=== PATIENT | female | born 1985 | race Caucasian/White ===

== ENCOUNTER 2024-05-12 14:26 | Outpatient (OUT) | payer SELFPAY ==
--- NOTE | 2024-05-12 17:43 | PC.NURSE ---
Charlene and 23 day old Anuj arrive for support. Mother vices concerns and frustration over journey and is looking for guidance to continue efforts to breastfed. Complete history obtained, of note H/O PCOS, insulin resistance and infertility. States did have breast changes with . Mom comments that milk took nearly 2 weeks to come in . Poor latching and infrequent pumping also noted. Pt wants to directly breastfeed if possible because pumping is tremendous work weight today is 9-6 oz. Large wet and yellow stool noted. Infant to breast in usual fashion for mom. LC notes poor positioning, shallow latching and infant frustrated with process. LC guides mom to better positioning, better hand placement, breast support and baby up to the breast . Infant calms and roots at nipple. Able to latch deeply on 2nd attempt. Mother voices surprise at infant behavior. Reviewed why latch and positioning is important for successful feeding and milk supply. Mom states I don't think he has ever latched like this, even in the beginning . Discussed supporting supply with pumping as baby relearns to feed at the breast. Given information on exclusive pumping schedule. Plan to bring infant to breast each feed with good positioning and deep latch, feed on both breasts as good practice and to pump if baby does not latch or if only feeds from 1 breast. Grandmother very supportive and offers good support. Baby nurses well 20 min on left breast, not interested in right breast. Upon assessment of infant no tongue or lip tie noted, baby does posture head to the right shoulder often, and has slight banana curve to the right when laying on back. Discussed use of body work with chiropractor for releasing tight muscles and assisting infant to be able to maintain midline head position. Mom open to information, will talk to and decide. Infant and family home to practice new skills, will return 05/17/2024 for continued support.
== END 2024-05-12 18:00 | disposition home or self-care (01) ==
PROVIDERS: PCP Family Medicine; Visit Provider Pediatrics
DX: Z39.1 Encounter for care and examination of lactating mother (principal)

== ENCOUNTER 2024-05-17 08:42 | Outpatient (OUT) | payer SELFPAY | END 2024-05-17 15:55 | disposition home or self-care (01) | PROVIDERS: PCP Family Medicine; Visit Provider Obstetrics & Gynecology | DX: Z39.1 Encounter for care and examination of lactating mother (principal) ==

== ENCOUNTER 2024-05-24 08:13 | Outpatient (OUT) | payer SELFPAY ==
--- NOTE | 2024-05-24 16:03 | PC.NURSE ---
Charlene and 5+ week old Anuj arrive for support. Her mother attends as well. Charlene decided to simply feed the baby After last visit, she decided to stop pumping and worrying over how much milk he was getting ; just put him to the breast when baby signaled and found baby to much happier, herself less stressed and now enjoying being a mom. States 2-4 times a day for stash and allows baby to feed every 1-3 hours during the day as well as sleep 4 hours at night. Charlene appears more relaxed, laughing and confident. She places baby to the breast independently, without prompting. Discussed ways to become more comfortable with feeding in public places, like [facility]. Discussed easy wardrobe options that allow for easy access and keeping mom covered as much as possible. Choose the seat in the back of [employer] to limit number of people that could watch her feed the baby Charlene states is a very private person, but she struggles with using a blanket or drape for nursing. Encouraged to attend [facility] group for further support. Grandma experienced mom of 6 and nursing as well. Very supportive of Charlene without being over bearing. Declined weight for Anuj as he was weighed yesterday at PEDS office. No further concerns voiced, leaves ambulatory for home aware to call for questions or concerns.
== END 2024-05-24 16:13 | disposition home or self-care (01) ==
LOC: FBCO 08:14
PROVIDERS: PCP Family Medicine; Visit Provider Obstetrics & Gynecology
DX: Z39.1 Encounter for care and examination of lactating mother (principal)

== ENCOUNTER 2024-06-19 11:28 | Outpatient (OUT) | payer SELFPAY ==
--- OUTSIDE RECORDS SUMMARY | 2024-06-19 11:47 | XMS_ITS | CCD ---
Author Organization [facility] Care Team Providers Care Supervisor [employer] Name Role Phone MADDIE LOZOYA Admitting Unavailable MADDIE LOZOYA Attending Unavailable MADDIE LOZOYA Consulting Unavailable Maddie Lozoya MD Primary Care Provider [phone] Maddie Lozoya MD Primary Care Provider [phone] KATELYNN WOODALL Attending Unavailable POOL, KATELYNN E Admitting Unavailable HOY, MADDIE M Primary Care Unavailable POOL, KATELYNN E Referring Unavailable HOY, MADDIE M Primary Care Unavailable POOL, KATELYNN E Referring Unavailable HOY, MADDIE M Primary Care Unavailable POOL, KATELYNN E Referring Unavailable HOY, MADDIE M Primary Care Unavailable POOL, KATELYNN E Referring Unavailable HOY, MADDIE M Primary Care Unavailable POOL, KATELYNN E Referring Unavailable HOY, MADDIE M Primary Care Unavailable POOL, KATELYNN E Admitting Unavailable HOY, MADDIE M Primary Care Unavailable POOL, KATELYNN E Attending Unavailable Medications Current Medications Medication Drug Class(es) Dates Sig (Normalized) Sig (Original) acetaminophen 500 mg oral tablet (1 source) Start: 04-19-2024 benzocaine 200 mg/ml / menthol 5 mg/ml topical spray (1 source) Standardized Chemical Allergen Start: 04-18-2024 Topical, PRN, Pain, Starting on Wed04/18/24 at 1853, Apply to perineal area. Patient is capable and may self administer at bedside. 1 ml carboprost 0.25 mg/ml injection (1 source) Prostaglandin Analog Start: 04-19-2024 clomiPHENE citrate 50 mg oral tablet (1 source) Estrogen Agonist/Antagonist Start: 09-07-2022 take 1 tablet by mouth once daily, then take 3 tablets by mouth once daily clomiPHENE (CLOMID) 50 MG tablet Take 1 tablet by mouth daily Take 3 tablets daily on cycle days 5-9. 15 tablet 0 09/07/2022 Active lanolin 1000 mg/ml topical cream (1 source) Start: 04-19-2024 miSOPROStol 0.1 mg oral tablet (1 source) Prostaglandin E1 Analog Start: 04-19-2024 ondansetron (ZOFRAN-ODT) disintegrating tablet 4 mg (1 source) Start: 04-19-2024 ondansetron (ZOFRAN-ODT) disintegrating tablet 4 mg Vit-Fe Fumarate-FA ( VITAMINS) 28-0.8 MG TABS (3 sources) Start: 09-09-2023 take 1 tablet by mouth once daily Vit-Fe Fumarate-FA ( VITAMINS) 28-0.8 MG TABS Take 1 tablet by mouth daily 90 tablet 3 09/09/2023 Suspended Start: 09-09-2023 take 1 tablet by iris th once daily Vit-Fe Fumarate-FA ( VITAMINS) 28-0.8 MG TABS Take 1 tablet by mouth daily 90 tablet 3 09/09/2023 Active 5 ml sodium chloride 9 mg/ml injection (2 sources) Start: 04-19-2024 Start: 04-18-2024 End: 04-19-2024 5-40 mL, IntraVENous, EVERY 12 HOURS SCHEDULED (2 times per day), First dose on Wed04/18/24 at 2100, Until Discontinued, For Line Patency: Peripheral IV = 5 mL; Midline or Central Line = 10 mL/lumen. If following IV push medication, administer flush at same rate as the IV push. Flush volume is determined by type of infusion therapy being given. For non-viscous solutions use: Peripheral IV = 5 mL Midline or Central Line = 10 mL/lumen For viscous solutions (i.e. blood components, parenteral nutrition, contrast media, or after obtaining blood sample) use: Peripheral IV = 10 mL Midline or Central Line = 20 mL/lumen, Labor and Delivery witch elif 500 mg/ml medicated pad (1 source) Start: 04-18-2024 Topical, PRN, Hemorrhoids, For perineal pain or discomfort, Starting on Wed04/18/24 at 1853, Apply to perineal area. Patient is capable and may self administer at bedside. Completed/Discontinued Medications Medication Drug Class(es) Dates Sig (Normalized) Sig (Original) calcium chloride 0.0014 meq/ml / potassium chloride 0.004 meq/ml / sodium chloride 0.103 meq/ml / sodium lactate 0.028 meq/ml injectable solution (1 source) Start: 04-18-2024 End: 04-19-2024 IntraVENous, at 125 mL/hr, CONTINUOUS, Starting on Wed04/18/24 at 1915, Labor and Delivery docusate sodium 100 mg oral capsule (1 source) Start: 04-19-2024 take 100 mg by mouth twice daily as needed 100 mg, Oral, 2 TIMES DAILY PRN, Starting on Wed04/19/24 at 1340, Until Discontinued, Constipation, Do not crush or break., ibuprofen 800 mg oral tablet (1 source) Nonsteroidal Anti-inflammatory Drug Start: 04-19-2024 800 mg, Oral, EVERY 8 HOURS SCHEDULED (3 times per day), First dose on Wed04/19/24 at 1400, Until Discontinued, Once tolerating PO, discontinue Ketorolac and begin ibuprofen 8 hours after the final dose of Ketotolac. Alternate ibuprofen and acetaminophen every 4 hours., labetalol hydrochloride 100 mg oral tablet (1 source) beta-Adrenergic Manohar Start: 04-18-2024 End: 04-18-2024 take 1 dose by mouth once 200 mg, Oral, ONCE, 1 dose, On Wed04/18/24 at 2315 lidocaine hydrochloride 20 mg/ml mucous membrane topical solution (2 sources) Antiarrhythmic, Amide Local Anesthetic Start: 04-19-2024 End: 04-19-2024 30 mL, Vaginal, ONCE, 1 dose, On Wed04/19/24 at 0045 Start: 04-18-2024 End: 04-19-2024 30 mL, Other, PRN, 1 dose, S tarting on Wed04/18/24 at 1853, Until Wed04/19/24 at 1128, Pain, for perineal laceration/episiotomy repair, Post Delivery oxytocin (PITOCIN) 30 units in 500 mL infusion (1 source) Start: 04-18-2024 End: 04-19-2024 1-24 víctor-units/min (1-24 m L/hr), IntraVENous, CONTINUOUS, Starting on Wed04/18/24 at 1915, Until Wed04/19/24 at 1340, Begin infusion at 1 víctor-unit/min (1 víctor-unit per min = 1 mL per hour) . Then increase by 2 víctor-units/min as needed, no faster than every 30 minutes, until labor is achieved. Labor is defined as contractions every 2-3 minutes with cervical changes or Condon units (MVU) greater than 200 in a 10-minute window. Maximum infusion rate: 24 víctor-unit/min. Contact provider if maximum rate does not achieve desired response. Provider may order alternative titration goal or other clinically appropriate goal of titration rate (s). Smaller titration increments of 1 víctor-units/min, not faster than every 30 minutes, may be used when approaching therapeutic goal after discussion with provider. If unable to increase call provider and let them know. At time of needed increase, Labor and Delivery Problems Active Problems Problem Classification Problem Date Documented Da te Episodic/Chronic Female infertility (3 sources) Female infertility; Translations: [Female infertility, unspecified] Chronic Hypertension complicating ; childbirth and the puerperium (5 sources) -induced hypertension; Translations: [Gestational [-induced] hypertension without significant proteinuria, unspecified trimester] Onset: 04-03-2024 04-03-2024 Episodic Menstrual disorders (2 sources) Amenorrhea; Translations: [Amenorrhea, unspecified] Onset: 09-09-2023 Chronic Other complications of (1 source) Obesity complicating , first trimester; Translations: [Obesity complicating , first trimester] Onset: 09-09-2023 Chronic Other endocrine disorders (3 sources) Polycystic ovary syndrome; Translations: [Polycystic ovarian syndrome] Onset: 12-29-2023 12-29-2023 Chronic Other and delivery including normal (7 sources) Encounter for supervision of normal , unspecified, third trimester; Translations: [Encounter for supervision of normal first , first trimester] Onset: 09-09-2023 Episodic Polyhydramnios and other problems of amniotic cavity (2 sources) Amniotic fluid leaking; Translations: [Premature rupture of membranes, unspecified as to length of time between rupture and onset of labor, unspecified weeks of gestation] Onset: 04-19-2024 04-19-2024 Episodic Prolonged (2 sources) Post-term of 40 to 42 weeks; Translations: [Post-term ] Onset: 04-19-2024 04-19-2024 Episodic Residual codes; unclassified (1 source) Gestation period, 36 weeks; Translations: [36 weeks gestation of ] 03-20-2024 Episodic Residual codes; unclassified (1 source) 36 weeks gestation of ; Translations: [36 weeks gestation of ] Onset: 03-20-2024 Episodic Past or Other Problems Problem Classification Problem Date Documented Date Episodic/Chronic Immunizations and screening for infectious disease (1 source) Encounter for screening for human papillomavirus (HPV); Translations: [Encounter for screening for human papillomavirus (HPV)] Onset: 06-14-2023 Episodic Other complications of (1 source) Spotting complicating , unspecified trimester; Translations: [Spotting complicating , unspecified trimester] Onset: 09-06-2023 Episodic Other female genital disorders (3 sources) H/O: infertility - female; Translations: [Personal history of other diseases of the female genital tract] Onset: 12-29-2023 12-29-2023 Episodic Residual codes; unclassified (1 source) 8 weeks gestation of ; Translations: [8 weeks gestation of ] Onset: 09-09-2023 Episodic Results Test Name Value Interpretation Reference Range Facility APTTon 04-18-2024 aPTT Coag (Bld) [Time] 24.0 s Low [facility] Comment on above: IV Heparin Therapy Range: 62.0-94.0 Interpretation and review of laboratory results Abnormal [facility] aPTT Coag (Bld) [Time] 24.0 s Low 26.8-34.8 [facility] Comment on above: Result Comment: IV Heparin Therapy Range: 62.0-94.0 Performed By: #### P TT, URI, LD, PT, CP #### [facility] [address] [place] [address] Name Plate Stamping Machine Operator: Rashaun Bonner MD CBC auto differentialon 04-09 Basophils (Bld) [#/Vol] 0.04 10*3/uL [facility] Basophils/100 WBC (Bld) 0 % 0 - 2 % [facility] Eosinophils (Bld) [#/Vol] 0.10 10*3/uL [facility] Eosinophils/100 WBC (Bld) 1 % 1 - 4 % [facility] Erythrocyte distribution width (RBC) [Ratio] 14.2 % 11.8 - 14.4 % [facility] Hematocrit (Bld) [Volume fraction] 44.2 % 36.3 - 47.1 % [facility] Hemoglobin (Bld) [Mass/Vol] 15.3 g/dL High 11.9 - 15.1 g/dL [facility] Immature granulocytes (Bld) [#/Vol] 0.05 10*3/uL [facility] Immature granulocytes/100 WBC (Bld) 0 % 0 [facility] Interpretation and review of laboratory results Abnormal [facility] Lymphocytes/100 WBC (Bld) 15 % Low 24 - 43 % [facility] Lymphocytes/100 WBC (Bld) 2.02 % [facility] MCH (RBC) [Entitic mass] 31.4 pg 25.2 - 33.5 pg [facility] MCHC (RBC) [Mass/Vol] 34.6 g/dL 28.4 - 34.8 g/dL [facility] MCV (RBC) [Entitic vol] 90.6 fL 82.6 - 102.9 fL [facility] Monocytes/100 WBC (Bld) 7 % 3 - 12 % [facility] Monocytes/100 WBC (Bld) 0.96 % [facility] Neutrophils/100 WBC (Bld) 77 % High 36 - 65 % [facility] Nucleated RBC/100 WBC (Bld) [Ratio] 0.0 % 0.0 per 100 WBC [facility] Platelet mean volume (Bld) [Entitic vol] 9.7 fL 8.1 - 13.5 fL [facility] Platelets (Bld) [#/Vol] 223 10*3/uL [facility] RBC (Bld) [#/Vol] 4.88 10*6/uL 3.95 - 5.1 1 m/uL [facility] Segmented neutrophils/100 WBC (Bld) 10.09 % High [facility] WBC other (Bld) [#/Vol] 13.3 High [facility] CBC with Diffon 04-18-2024 Abs. Basophil 0.04 k/uL Normal 0.00-0.20 [facility] Comment on above: Performed By: #### C DP #### [facility] [address] [place] [address] Name Plate Stamping Machine Operator: Rashaun Bonner MD Abs.Imm.Granulocyte 0.05 k/uL Normal 0.00-0.30 [facility] Comment on above: Performed By: #### C DP #### [facility] [address] [place], [place] [address] Name Plate Stamping Machine Operator: Rashaun Bonner MD Abs.Neutrophil (Seg) 10.09 k/uL High 1.50-8.10 [facility] Comment on above: Performed By: #### C DP #### [facility] [address] [place], [place] [address] Name Plate Stamping Machine Operator: Rashaun Bonner MD Basophils/100 WBC (Bld) 0 % Normal 0-2 [facility] Comment on above: Performed By: #### C DP #### [facility] [address] [place] [address] [place], [place] [address] Name Plate Stamping Machine Operator: Rashaun Bonner MD Eosinophils (Bld) [#/Vol] 0.10 10*3/uL Normal 0.00-0.44 [facility] Comment on above: Performed By: #### C DP #### [facility] [address] [place], [id number] Name Plate Stamping Machine Operator: Rashaun Bonner MD Eosinophils/100 WBC (Bld) 1 % Normal 1-4 [facility] Comment on above: Performed By: #### C DP #### [facility] [address] [place] [address] [place] [address] Name Plate Stamping Machine Operator: Rashaun Bonner MD Erythrocyte distribution width (RBC) [Ratio] 14.2 % Normal 11.8-14.4 [facility] Comment on above: Performed By: #### C DP #### [facility] [address] [place], [place] [id number] Name Plate Stamping Machine Operator: Rashaun Bonner MD Hematocrit (Bld) [Volume fraction] 44.2 % Normal 36.3-47.1 [facility] Comment on above: Performed By: #### C DP #### [facility] [address] [place], [place] [id number] Name Plate Stamping Machine Operator: Rashaun Bonner MD Hemoglobin (Bld) [Mass/Vol] 15.3 g/dL High 11.9-15.1 [facility] Comment on above: Performed By: #### C DP #### [address] [place] [address] Name Plate Stamping Machine Operator: Rashaun Bonner MD Immature granulocytes/100 WBC (Bld) 0 % Normal 0 [facility] Comment on above: Performed By: #### C DP #### [facility] [address] [place] [address] [place], [place] [id number] Name Plate Stamping Machine Operator: Rashaun Bonner MD Lymphocytes (Bld) [#/Vol] 2.02 10*3/uL Normal 1.10-3.70 [facility] Comment on above: Performed By: #### C DP #### [facility] [address] [place] [address] [place], [id number] Name Plate Stamping Machine Operator: Rashaun Bonner MD Lymphocytes/100 WBC (Bld) 15 % Low 24-43 [facility] Comment on above: Performed By: #### C DP #### [facility] [address] [place] [address] [place] [address] Name Plate Stamping Machine Operator: Rashaun Bonner MD MCH (RBC) [Entitic mass] 31.4 pg Normal 25.2-33.5 [facility] Comment on above: Performed By: #### C DP #### [facility] [address] [place] [address] [place], [place] [id number] Name Plate Stamping Machine Operator: Rashaun Bonner MD MCHC (RBC) [Mass/Vol] 34.6 g/dL Normal 28.4-34.8 [facility] Comment on above: Performed By: #### C DP #### [facility] [address] [place], [place] [id number] Name Plate Stamping Machine Operator: Rashaun Bonner MD MCV (RBC) [Entitic vol] 90.6 fL Normal 82.6-102.9 [facility] Comment on above: Performed By: #### C DP #### [facility] [address] [place], [place] [id number] Name Plate Stamping Machine Operator: Rashaun Bonner MD Monocytes (Bld) [#/Vol] 0.96 10*3/uL Normal 0.10-1.20 [facility] Comment on above: Performed By: #### C DP #### [facility] [address] [place], [place] [id number] Name Plate Stamping Machine Operator: Rashaun Bonner MD Monocytes/100 WBC (Bld) 7 % Normal 3-12 [facility] Comment on above: Performed By: #### C DP #### [facility] [address] [place], [place] [id number] Name Plate Stamping Machine Operator: Rashaun Bonner MD Neutrophil (Seg) 77 % High 36-65 [facility] Comment on above: Performed By: #### C DP #### [facility] [address] [place], [place] [id number] Name Plate Stamping Machine Operator: Rashaun Bonner MD NRBC Automated 0.0 per 100 WBC Normal 0.0 [facility] Comment on above: Performed By: #### C DP #### [facility] [address] [place], [place] [id number] Name Plate Stamping Machine Operator: Rashaun Bonner MD Platelet mean volume (Bld) [Entitic vol] 9.7 fL Normal 8.1-13.5 [facility] Comment on above: Performed By: #### C DP #### [facility] [address] [place], [place] [address] Name Plate Stamping Machine Operator: Rashaun Bonner MD Platelets (Bld) [#/Vol] 223 10*3/uL Normal 138-453 [facility] Comment on above: Performed By: #### C DP #### [facility] [address] [place], [place] [id number] Name Plate Stamping Machine Operator: Rashaun Bonner MD RBC (Bld) [#/Vol] 4.88 10*6/uL Normal 3.95-5.11 [facility] Comment on above: Performed By: #### C DP #### [facility] [address] [place], [place] [id number] Name Plate Stamping Machine Operator: Rashaun Bonner MD WBC (Bld) [#/Vol] 13.3 10*3/uL High 3.5-11.3 [facility] Comment on above: Performed By: #### C DP #### [facility] [address] [place], [place] [id number] Name Plate Stamping Machine Operator: Rashaun Bonner MD Comp Metabolic Profon 2023 Albumin [Mass/Vol] 3.6 g/dL Normal 3.5-5.2 [facility] Comment on above: Performed By: #### P TT, URI, LD, PT, CP #### [facility] [address] [place], [place] [id number] Name Plate Stamping Machine Operator: Rashaun Bonner MD Albumin/Glob Ratio 1.1 Normal 1.0-2.5 [facility] Comment on above: Performed By: #### P TT, URI, LD, PT, CP #### [facility] [address] [place] [address] Name Plate Stamping Machine Operator: Rashaun Bonner MD Alkaline Phos 195 U/L High 35-104 [facility] Comment on above: Performed By: #### P TT, URI, LD, PT, CP #### [facility] [address] [place] [address] Name Plate Stamping Machine Operator: Rashaun Bonner MD ALT [Catalytic activity/Vol] 9 U/L Low - [facility] Comment on above: Performed By: #### P TT, URI, LD, PT, CP #### [facility] [address] [place] [address] [place], [place] [id number] Name Plate Stamping Machine Operator: Rashaun Bonner MD Anion gap [Moles/Vol] 12 mmol/L Normal 9-16 [facility] Comment on above: Performed By: #### P TT, URI, LD, PT, CP #### [address] [place], [place] 6802183 Name Plate Stamping Machine Operator: Rashaun Bonner MD AST [Catalytic activity/Vol] 17 U/L Normal [facility] Comment on above: Performed By: #### P TT, URI, LD, PT, CP #### [address] [place] [address] Name Plate Stamping Machine Operator: Rashaun Bonner MD Bilirubin [Mass/Vol] 0.3 mg/dL Normal 0.00-1.20 [facility] Comment on above: Performed By: #### P TT, URI, LD, PT, CP #### [address] [place], [place] [phone] Name Plate Stamping Machine Operator: Rashaun Bonner MD BUN/CRE Ratio 14 Normal 9-20 [facility] Comment on above: Performed By: #### P TT, URI, LD, PT, CP #### [address] [place] [address] Name Plate Stamping Machine Operator: Rashaun Bonner MD Calcium [Mass/Vol] 9.8 mg/dL Normal 8.6-10.4 [facility] Comment on above: Performed By: #### P TT, URI, LD, PT, CP #### [facility] [address] [place], [place] [phone] Name Plate Stamping Machine Operator: Rashaun Bonner MD Chloride [Moles/Vol] 105 mmol/L Normal 98-107 [facility] Comment on above: Performed By: #### P TT, URI, LD, PT, CP #### [facility] [address] [place] [id number] Name Plate Stamping Machine Operator: Rashaun Bonner MD CO2 [Moles/Vol] 20 mmol/L Normal 20-31 [facility] Comment on above: Performed By: #### P TT, URI, LD, PT, CP #### [facility] [address] [place] [address] Name Plate Stamping Machine Operator: Rashaun Bonner MD Creatinine [Mass/Vol] 0.7 mg/dL Normal 0.50-0.90 [facility] Comment on above: Performed By: #### P TT, URI, LD, PT, CP #### [facility] [address] [place] [address] Name Plate Stamping Machine Operator: Rashaun Bonner MD GFR/1.73 sq M.predicted among non-blacks MDRD (S/P/Bld) [Vol rate/Area] mL/min/{1.73_m2} Normal >60 [facility] Comment on above: Result Comment: These results are not intended for use in patients <18 years of age. eGFR results are calculated without a race factor using the 2020 CKD-EPI equation. Careful clinical correlation is recommended, particularly when comparing to results calculated using previous equations. The CKD-EPI equation is less accurate in patients with extremes of muscle mass, extra-renal metabolism of creatine, excessive creatine ingestion, or following therapy that affects renal tubular secretion. Performed By: #### P TT, URI, LD, PT, CP #### [facility] [address] [place], [place] [phone] Name Plate Stamping Machine Operator: Rashaun Bonner MD Glucose [Mass/Vol] 75 mg/dL Normal 74-99 [facility] Comment on above: Performed By: #### P TT, URI, LD, PT, CP #### [facility] [address] [place], [place] [id number] Name Plate Stamping Machine Operator: Rashaun Bonner MD Potassium [Moles/Vol] 3.9 mmol/L Normal 3.7-5.3 [facility] Comment on above: Performed By: #### P TT, URI, LD, PT, CP #### [facility] [address] [place], [place] [phone] Name Plate Stamping Machine Operator: Rashaun Bonner MD Protein [Mass/Vol] 6.8 g/dL Normal 6.6-8.7 [facility] Comment on above: Performed By: #### P TT, URI, LD, PT, CP #### [address] [place] [address] Name Plate Stamping Machine Operator: Rashaun Bonner MD Sodium [Moles/Vol] 137 mmol/L Normal 136-145 [facility] Comment on above: Performed By: #### P TT, URI, LD, PT, CP #### [address] [place] [address] Name Plate Stamping Machine Operator: Rashaun Bonner MD Urea nitrogen [Mass/Vol] 10 mg/dL Normal 6-20 [facility] Comment on above: Performed By: #### P TT, URI, LD, PT, CP #### [facility] [address] [place] [address] Name Plate Stamping Machine Operator: Rashaun Bonner MD Comprehensive Metabolic Pane [facility] 04-18-2024 Albumin [Mass/Vol] 3.6 g/dL 3.5 - 5.2 g/dL [facility] Albumin/Globulin [Mass ratio] 1.1 {ratio} 1.0 - 2.5 [facility] ALP [Catalytic activity/Vol] 195 U/L High 35 - 104 U/L [facility] ALT [Catalytic activity/Vol] 9 U/L Low 10 - 35 U/L [facility] Anion gap [Moles/Vol] 12 mmol/L 9 - 16 mmol/L [facility] AST [Catalytic activity/Vol] 17 U/L 10 - 35 U/L [facility] Bilirubin [Mass/Vol] 0.3 mg/dL 0.00 - 1.20 mg/dL [facility] Calcium [Mass/Vol] 9.8 mg/dL 8.6 - 10. 4 mg/dL [facility] Chloride [Moles/Vol] 105 mmol/L 98 - 10 7 mmol/L [facility] CO2 [Moles/Vol] 20 mmol/L 20 - 31 mmol/L [facility] Creatinine [Mass/Vol] 0.7 mg/dL 0.50 - 0.90 mg/dL [facility] EstAbdirashid Rate - PINF [facility] Comment on above: These results are not intended for use in patients <18 years of age. eGFR results are calculated without a race factor using the 2020 CKD-EPI equation. Careful clinical correlation is recommended, particularly when comparing to results calculated using previous equations. The CKD-EPI equation is less accurate in patients with extremes of muscle mass, extra-renal metabolism of creatine, excessive creatine ingestion, or following therapy that affects renal tubular secretion. Glucose [Mass/Vol] 75 mg/dL 74 - 99 mg/dL [facility] Interpretation and review of laboratory results Abnormal [facility] Potassium [Moles/Vol] 3.9 mmol/L 3.7 - 5.3 mmol/L [facility] Protein [Mass/Vol] 6.8 g/dL 6.6 - 8.7 g/dL [facility] Sodium [Moles/Vol] 137 mmol/L 136 - 145 mmol/L [facility] Urea nitrogen [Mass/Vol] 10 mg/dL 6 - 20 mg/dL [facility] Urea nitrogen/Creatinine [Mass ratio] 14 mg/mg 9 - 20 [facility] Lactate Dehydrogenaseon 12- LDH [Catalytic activity/Vol] 169 U/L 135 - 214 U/L [facility] LDH [Catalytic activity/Vol] 169 U/L Normal 135-214 [facility] Comment on above: Performed By: #### P TT, URI, LD, PT, CP #### [facility] [address] [place] [address] Name Plate Stamping Machine Operator: Rashaun Bonner MD No Panel Informationon 04-18 [facility] PTon 04-18-2024 INR Coag (PPP) [Relative time] 1.0 {INR} Normal [facility] Comment on above: Result Comment: Therapeutic Range: Moderate Anticoagulant Intensity: INR = 2.0-3.0 High Anticoagulant Intensity: INR = 2.5-3.5 Performed By: #### P TT, URI, LD, PT, CP #### [facility] [address] [place] [address] Name Plate Stamping Machine Operator: Rashaun Bonner MD PT Coag (PPP) [Time] 12.5 s Normal 11.7-14.1 [facility] Comment on above: Performed By: #### P TT, URI, LD, PT, CP #### [facility] [address] [place] [address] Name Plate Stamping Machine Operator: Rashaun Bonner MD Protein / creatinine ratio, urineon 04-18-2024 Creatinine (U) [Mass/Vol] 34.4 mg/dL 28.0 - 217.0 mg/dL [facility] Interpretation and review of laboratory results Abnormal [facility] Protein (U) [Mass/Vol] 10 mg/dL [facility] Comment on above: No normal range esta blished. Urine Total Protein Creatinine Ratio 0.29 High 0.00 - 0.20 [facility] Protein,Tot,Metcalf Uron 2023 Creatinine [Mass/Vol] 34.4 mg/dL Normal 28.0-217.0 [facility] Comment on above: Performed By: #### C DP #### [facility] [address] [place] [address] Name Plate Stamping Machine Operator: Rashaun Bonner MD Tot Prot. Conc. 10 mg/dL Normal [facility] Comment on above: Result Comment: No n ormal range established. Performed By: #### C DP #### [facility] [address] [place] [address] Name Plate Stamping Machine Operator: Rashaun Bonner MD TP/Cre Ratio 0.29 High 0.00-0.20 [facility] Comment on above: Performed By: #### C DP #### [facility] [address] [place] [address] Name Plate Stamping Machine Operator: Rashaun Bonner MD Protime-INRon 04-18-2024 INR Coag (PPP) [Relative time] 1.0 {INR} [facility] Comment on above: Therapeutic Range: Moderate Anticoagulant Intensity: INR = 2.0-3.0 High Anticoagulant Intensity: INR = 2.5-3.5 PT Coag (PPP) [Time] 12.5 s [facility] TYPE AND SCREENon 04-18-2024 ABO and Rh group Nom (Bld) Blood group A Rh(D) positive [facility] Arm Band Number [id number] [facility] Blood Bank Sample Expiration 04/21/2024,2359 [facility] Blood group antibodies identified Nom Negative [facility] Type + Screenon 04-18-2024 Type + Screen Sample Expiration 04/21/2024,2359 Arm Band Number [id number] ABO/Rh(D) A POSITIVE Antibody Screen NEGATIVE Normal [facility] Comment on above: Performed By: #### T YS #### [facility] [address] [place] [address] Name Plate Stamping Machine Operator: Rashaun Bonner MD Uric Acidon 04-18-2024 Urate [Mass/Vol] 4.7 mg/dL 2.4 - 5.7 mg/dL [facility] Urate [Mass/Vol] 4.7 mg/dL Normal 2.4-5.7 [facility] Comment on above: Performed By: #### C DP #### [facility] [address] [place] [address] Name Plate Stamping Machine Operator: Rashaun Bonner MD APTTon 04-03-2024 aPTT Coag (Bld) [Time] 23.5 s Low [facility] Comment on above: IV Heparin Therapy Range: 62.0-94.0 Interpretation and review of laboratory results Abnormal [facility] aPTT Coag (Bld) [Time] 23.5 s Low 26.8-34.8 [facility] Comment on above: Result Comment: IV Heparin Therapy Range: 62.0-94.0 Performed By: #### B HCG #### [facility] [address] [place], [place] [id number] Name Plate Stamping Machine Operator: Vic Bean MD CBC with Auto Differentialon 04-03-2024 Basophils (Bld) [#/Vol] 0.03 10*3/uL [facility] Basophils/100 WBC (Bld) 0 % 0 - 2 % [facility] Eosinophils (Bld) [#/Vol] 0.08 10*3/uL [facility] Eosinophils/100 WBC (Bld) 1 % 1 - 4 % [facility] Erythrocyte distribution width (RBC) [Ratio] 14.3 % 11.8 - 14.4 % [facility] Hematocrit (Bld) [Volume fraction] 39.6 % 36.3 - 47.1 % [facility] Hemoglobin (Bld) [Mass/Vol] 13.5 g/dL 11.9 - 15.1 g/dL [facility] Immature granulocytes (Bld) [#/Vol] 0.05 10*3/uL [facility] Immature granulocytes/100 WBC (Bld) 0 % 0 [facility] Interpretation and review of laboratory results Abnormal [facility] Lymphocytes/100 WBC (Bld) 14 % Low 24 - 43 % [facility] Lymphocytes/100 WBC (Bld) 1.61 % [facility] MCH (RBC) [Entitic mass] 30.8 pg 25.2 - 33.5 pg [facility] MCHC (RBC) [Mass/Vol] 34.1 g/dL 28.4 - 34.8 g/dL [facility] MCV (RBC) [Entitic vol] 90.4 fL 82.6 - 102.9 fL [facility] Monocytes/100 WBC (Bld) 7 % 3 - 12 % [facility] Monocytes/100 WBC (Bld) 0.73 % [facility] Neutrophils/100 WBC (Bld) 78 % High 36 - 65 % [facility] Nucleated RBC/100 WBC (Bld) [Ratio] 0.0 % 0.0 per 100 WBC [facility] Platelet mean volume (Bld) [Entitic vol] 9.4 fL 8.1 - 13.5 fL [facility] Platelets (Bld) [#/Vol] 232 10*3/uL [facility] RBC (Bld) [#/Vol] 4.38 10*6/uL 3.95 - 5.1 1 m/uL [facility] Segmented neutrophils/100 WBC (Bld) 8.77 % High [facility] WBC other (Bld) [#/Vol] 11.3 [facility] CBC with Diffon 04-03-2024 Abs. Basophil 0.03 k/uL Normal 0.00-0.20 [facility] Comment on above: Performed By: #### B HCG #### [facility] [address] [place] [address] Name Plate Stamping Machine Operator: Vic Bean MD Abs.Imm.Granulocyte 0.05 k/uL Normal 0.00-0.30 [facility] Comment on above: Performed By: #### B HCG #### [facility] [place] [address] Name Plate Stamping Machine Operator: Vic Bean MD Abs.Neutrophil (Seg) 8.77 k/uL High 1.50-8.10 [facility] Comment on above: Performed By: #### B HCG #### [facility] Okrug[facility] [address] [place] [address] Name Plate Stamping Machine Operator: Vic Bean MD Basophils/100 WBC (Bld) 0 % Normal 0-2 [facility] Comment on above: Performed By: #### B HCG #### [address] [address] Name Plate Stamping Machine Operator: Vic Bean MD Eosinophils (Bld) [#/Vol] 0.08 10*3/uL Normal 0.00-0.44 [facility] Comment on above: Performed By: #### B HCG #### [address] [address] Name Plate Stamping Machine Operator: Vic Bean MD Eosinophils/100 WBC (Bld) 1 % Normal 1-4 [facility] Comment on above: Performed By: #### B HCG #### [address] [address] Name Plate Stamping Machine Operator: Vic Bean MD Erythrocyte distribution width (RBC) [Ratio] 14.3 % Normal 11.8-14.4 [facility] Comment on above: Performed By: #### B HCG #### [address] [address] Name Plate Stamping Machine Operator: Vic Bean MD Hematocrit (Bld) [Volume fraction] 39.6 % Normal 36.3-47.1 [facility] Comment on above: Performed By: #### B HCG #### [address] [address] Name Plate Stamping Machine Operator: Vic Bean MD Hemoglobin (Bld) [Mass/Vol] 13.5 g/dL Normal 11.9-15.1 [facility] Comment on above: Performed By: #### B HCG #### [address] [address] Name Plate Stamping Machine Operator: Vic Bean MD Immature granulocytes/100 WBC (Bld) 0 % Normal 0 [facility] Comment on above: Performed By: #### B HCG #### [employer] [address] Name Plate Stamping Machine Operator: Vic Bean MD Lymphocytes (Bld) [#/Vol] 1.61 10*3/uL Normal 1.10-3.70 [facility] Comment on above: Performed By: #### B HCG #### [address] [address] Name Plate Stamping Machine Operator: Vic Bean MD Lymphocytes/100 WBC (Bld) 14 % Low 24-43 [facility] Comment on above: Performed By: #### B HCG #### [address] [address] Name Plate Stamping Machine Operator: Vic Bean MD MCH (RBC) [Entitic mass] 30.8 pg Normal 25.2-33.5 [facility] Comment on above: Performed By: #### B HCG #### [address] [address] Name Plate Stamping Machine Operator: Vic Bean MD MCHC (RBC) [Mass/Vol] 34.1 g/dL Normal 28.4-34.8 [facility] Comment on above: Performed By: #### B HCG #### [address] [address] Name Plate Stamping Machine Operator: Vic Bean MD MCV (RBC) [Entitic vol] 90.4 fL Normal 82.6-102.9 [facility] Comment on above: Performed By: #### B HCG #### [address] [address] Name Plate Stamping Machine Operator: Vic Bean MD Monocytes (Bld) [#/Vol] 0.73 10*3/uL Normal 0.10-1.20 [facility] Comment on above: Performed By: #### B HCG #### [address] [address] Name Plate Stamping Machine Operator: Vic Bean MD Monocytes/100 WBC (Bld) 7 % Normal 3-12 [facility] Comment on above: Performed By: #### B HCG #### [address] [place] [address] Name Plate Stamping Machine Operator: Vic Bean MD Neutrophil (Seg) 78 % High 36-65 [facility] Comment on above: Performed By: #### B HCG #### [address] [address] Name Plate Stamping Machine Operator: Vic Bean MD NRBC Automated 0.0 per 100 WBC Normal 0.0 [facility] Comment on above: Performed By: #### B HCG #### [address] [address] Name Plate Stamping Machine Operator: Vic Bean MD Platelet mean volume (Bld) [Entitic vol] 9.4 fL Normal 8.1-13.5 [facility] Comment on above: Performed By: #### B HCG #### [address] [address] Name Plate Stamping Machine Operator: Vic Bean MD Platelets (Bld) [#/Vol] 232 10*3/uL Normal 138-453 [facility] Comment on above: Performed By: #### B HCG #### [address] [address] Name Plate Stamping Machine Operator: Vic Bean MD RBC (Bld) [#/Vol] 4.38 10*6/uL Normal 3.95-5.11 [facility] Comment on above: Performed By: #### B HCG #### [address] [address] Name Plate Stamping Machine Operator: Vic Bean MD WBC (Bld) [#/Vol] 11.3 10*3/uL Normal 3.5-11.3 [facility] Comment on above: Performed By: #### B HCG #### [address] [address] Name Plate Stamping Machine Operator: Vic Bean MD Comp Metabolic Profon 2023 Albumin [Mass/Vol] 3.6 g/dL Normal 3.5-5.2 [facility] Comment on above: Performed By: #### B HCG #### [address] [address] Name Plate Stamping Machine Operator: Vic Bean MD Albumin/Glob Ratio 1.4 Normal 1.0-2.5 [facility] Comment on above: Performed By: #### B HCG #### [address] [address] Name Plate Stamping Machine Operator: Vic Bean MD Alkaline Phos 163 U/L High 35-104 [facility] Comment on above: Performed By: #### B HCG #### [address] [address] Name Plate Stamping Machine Operator: Vic Bean MD ALT [Catalytic activity/Vol] 9 U/L Low 10-35 [facility] Comment on above: Performed By: #### B HCG #### [address] [address] Name Plate Stamping Machine Operator: Vic Bean MD Anion gap [Moles/Vol] 13 mmol/L Normal 9-16 [facility] Comment on above: Performed By: #### B HCG #### [address] [address] Name Plate Stamping Machine Operator: Vic Bean MD AST [Catalytic activity/Vol] 18 U/L Normal 10-35 [facility] Comment on above: Performed By: #### B HCG #### [address] [place] [address] Name Plate Stamping Machine Operator: Vic Bean MD Bilirubin [Mass/Vol] 0.3 mg/dL Normal 0.00-1.20 [facility] Comment on above: Performed By: #### B HCG #### [address] [address] Name Plate Stamping Machine Operator: Vic Bean MD BUN/CRE Ratio 10 Normal 9-20 [facility] Comment on above: Performed By: #### B HCG #### [address] [address] Name Plate Stamping Machine Operator: Vic Bean MD Calcium [Mass/Vol] 9.0 mg/dL Normal 8.6-10.4 [facility] Comment on above: Performed By: #### B HCG #### [address] [address] Name Plate Stamping Machine Operator: Vic Bean MD Chloride [Moles/Vol] 105 mmol/L Normal 98-107 [facility] Comment on above: Performed By: #### B HCG #### [address] [address] Name Plate Stamping Machine Operator: Vic Bean MD CO2 [Moles/Vol] 19 mmol/L Low 20-31 [facility] Comment on above: Performed By: #### B HCG #### [address] [address] Name Plate Stamping Machine Operator: Vic Bean MD Creatinine [Mass/Vol] 0.6 mg/dL Normal 0.50-0.90 [facility] Comment on above: Performed By: #### B HCG #### [address] [address] Name Plate Stamping Machine Operator: Vic Bean MD GFR/1.73 sq M.predicted among non-blacks MDRD (S/P/Bld) [Vol rate/Area] mL/min/{1.73_m2} Normal >60 [facility] Comment on above: Result Comment: These results are not intended for use in patients <18 years of age. eGFR results are calculated without a race factor using the 2020 CKD-EPI equation. Careful clinical correlation is recommended, particularly when comparing to results calculated using previous equations. The CKD-EPI equation is less accurate in patients with extremes of muscle mass, extra-renal metabolism of creatine, excessive creatine ingestion, or following therapy that affects renal tubular secretion. Performed By: #### B HCG #### [address] [place] [address] Name Plate Stamping Machine Operator: Vic Bean MD Glucose [Mass/Vol] 104 mg/dL High 74-99 [facility] Comment on above: Performed By: #### B HCG #### [facility] [address] [place] [address] Name Plate Stamping Machine Operator: Vic Bean MD Potassium [Moles/Vol] 3.7 mmol/L Normal 3.7-5.3 [facility] Comment on above: Performed By: #### B HCG #### [facility]rug[facility] [address] [place] [address] Name Plate Stamping Machine Operator: Vic Bean MD Protein [Mass/Vol] 6.2 g/dL Low 6.6-8.7 [facility] Comment on above: Performed By: #### B HCG #### [facility] M[facility] Okruga [address] [place] [address] Name Plate Stamping Machine Operator: Vic Bean MD Sodium [Moles/Vol] 137 mmol/L Normal 136-145 [facility] Comment on above: Performed By: #### B HCG #### [facility] M[facility] Okrug[facility] [address] [place] [address] Name Plate Stamping Machine Operator: Vic Bean MD Urea nitrogen [Mass/Vol] 6 mg/dL Normal 6-20 [facility] Comment on above: Performed By: #### B HCG #### [facility] M[facility] Okrug[facility] [address] [place] [address] Name Plate Stamping Machine Operator: Vic Bean MD Comprehensive Metabolic Pane [facility] 04-03-2024 Albumin [Mass/Vol] 3.6 g/dL 3.5 - 5.2 g/dL [facility] Albumin/Globulin [Mass ratio] 1.4 {ratio} 1.0 - 2.5 [facility] ALP [Catalytic activity/Vol] 163 U/L High 35 - 104 U/L [facility] ALT [Catalytic activity/Vol] 9 U/L Low 10 - 35 U/L [facility] Anion gap [Moles/Vol] 13 mmol/L 9 - 16 mmol/L [facility] AST [Catalytic activity/Vol] 18 U/L 10 - 35 U/L [facility] Bilirubin [Mass/Vol] 0.3 mg/dL 0.00 - 1.20 mg/dL [facility] Calcium [Mass/Vol] 9.0 mg/dL 8.6 - 10. 4 mg/dL [facility] Chloride [Moles/Vol] 105 mmol/L 98 - 10 7 mmol/L [facility] CO2 [Moles/Vol] 19 mmol/L Low 20 - 31 mmol/L [facility] Creatinine [Mass/Vol] 0.6 mg/dL 0.50 - 0.90 mg/dL [facility] Est, Abdirashid Penn Rate - PINF [facility] Comment on above: These results are not intended for use in patients <18 years of age. eGFR results are calculated without a race factor using the 2020 CKD-EPI equation. Careful clinical correlation is recommended, particularly when comparing to results calculated using previous equations. The CKD-EPI equation is less accurate in patients with extremes of muscle mass, extra-renal metabolism of creatine, excessive creatine ingestion, or following therapy that affects renal tubular secretion. Glucose [Mass/Vol] 104 mg/dL High 74 - 99 mg/dL [facility] Interpretation and review of laboratory results Abnormal [facility] Potassium [Moles/Vol] 3.7 mmol/L 3.7 - 5.3 mmol/L [facility] Protein [Mass/Vol] 6.2 g/dL Low 6.6 - 8.7 g/dL [facility] Sodium [Moles/Vol] 137 mmol/L 136 - 145 mmol/L [facility] Urea nitrogen [Mass/Vol] 6 mg/dL 6 - 20 mg/dL [facility] Urea nitrogen/Creatinine [Mass ratio] 10 mg/mg 9 - 20 [facility] Fibrinogenon 04-03-2024 Fibrinogen Coag (PPP) [Mass/Vol] 502 mg/dL 179 - 518 mg/dL [facility] Fibrinogen 502 mg/dL Normal 179-518 [facility] Comment on above: Performed By: #### B HCG #### [email or web address] [place], [place] [id number] Name Plate Stamping Machine Operator: Vic Bean MD Lactate Dehydrogenaseon 03-11 LDH [Catalytic activity/Vol] 147 U/L 135 - 214 U/L [facility] LDH [Catalytic activity/Vol] 147 U/L Normal 135-214 [facility] Comment on above: Performed By: #### B HCG #### [email or web address] [place] [address] Name Plate Stamping Machine Operator: Vic Bean MD Microscopic Urinalysison Bacteria LM Ql (Urine sed) 3+ Abnormal None [facility] Epithelial cells LM.HPF (Urine sed) [#/Area] 2 TO 5 [facility] Interpretation and review of laboratory results Abnormal [facility] RBC LM.HPF (Urine sed) [#/Area] None [facility] WBC LM.HPF (Urine sed) [#/Area] 2 TO 5 [facility] No Panel Informationon 04-03 [facility] PTon 04-03-2024 INR Coag (PPP) [Relative time] 1.0 {INR} Normal [facility] Comment on above: Result Comment: Therapeutic Range: Moderate Anticoagulant Intensity: INR = 2.0-3.0 High Anticoagulant Intensity: INR = 2.5-3.5 Performed By: #### B HCG #### [email or web address] [place] [address] Name Plate Stamping Machine Operator: Vic Bean MD PT Coag (PPP) [Time] 12.5 s Normal 11.7-14.1 [facility] Comment on above: Performed By: #### B HCG #### [email or web address] [address] [place], [place] [id number] Name Plate Stamping Machine Operator: Vic Bean MD Protein / creatinine ratio, urineon 04-03-2024 Creatinine (U) [Mass/Vol] 50.9 mg/dL 28.0 - 217.0 mg/dL [facility] Protein (U) [Mass/Vol] 8 mg/dL [facility] Comment on above: No normal range esta blished. Urine Total Protein Creatinine Ratio 0.16 0.00 - 0.20 [facility] Protein,Tot,Metcalf Uron 2023 Creatinine [Mass/Vol] 50.9 mg/dL Normal 28.0-217.0 [facility] Comment on above: Performed By: #### C DP #### [facility] [address] [place] [address] Name Plate Stamping Machine Operator: Rashaun Bonner MD Tot Prot. Conc. 8 mg/dL Normal [facility] Comment on above: Result Comment: No n ormal range established. Performed By: #### C DP #### [facility] [address] [place] [address] Name Plate Stamping Machine Operator: Rashaun Bonner MD TP/Cre Ratio 0.16 Normal 0.00-0.20 [facility] Comment on above: Performed By: #### C DP #### [facility] [address] [place] [address] [place] [address] Name Plate Stamping Machine Operator: Rashaun Bonner MD Protime-INRon 04-03-2024 INR Coag (PPP) [Relative time] 1.0 {INR} [facility] Comment on above: Therapeutic Range: Moderate Anticoagulant Intensity: INR = 2.0-3.0 High Anticoagulant Intensity: INR = 2.5-3.5 PT Coag (PPP) [Time] 12.5 s [facility] Uric Acidon 04-03-2024 Urate [Mass/Vol] 5.5 mg/dL 2.4 - 5.7 mg/dL [facility] Urate [Mass/Vol] 5.5 mg/dL Normal 2.4-5.7 [facility] Comment on above: Performed By: #### B HCG #### [facility] [address] [place] [id number] Name Plate Stamping Machine Operator: Vic Bean MD Urinalysison 04-03-2024 Bilirubin Ql (U) Negative NEGATIVE [facility] Clarity (U) SLIGHTLY CLOUDY Abnormal Clear [facility] Color (U) Yellow Yellow [facility] Glucose Test strip (U) [Mass/Vol] Negative NEGATIVE mg/dL [facility] Hemoglobin Auto test strip Ql (U) Negative NEGATIVE [facility] Interpretation and review of laboratory results Abnormal [facility] Ketones (U) [Mass/Vol] Negative NEGATIVE mg/dL [facility] Leukocyte esterase Test strip Ql (U) SMALL Abnormal NEGATIVE [facility] Nitrite Ql (U) Negative NEGATIVE [facility] pH (U) 6.5 [pH] 5.0 - 9.0 [facility] Protein (U) [Mass/Vol] Negative NEGATIVE mg/dL [facility] Specific gravity (U) [Rel density] Low 1.010 - 1.020 [facility] Urobilinogen Qn (U) Normal 0.0 - 1. 0 EU/dL [facility] Urinalysis, Routineon 2023 Bilirubin, SemiQt,Ur Negative Normal NEG [facility] Comment on above: Performed By: #### B HCG #### [facility] [address] [place] [id number] Name Plate Stamping Machine Operator: Vic Bean MD Blood, Urine Negative Normal NEG [facility] Comment on above: Performed By: #### B HCG #### [facility] [address] [place] [phone] Name Plate Stamping Machine Operator: Vic Bean MD Clarity (U) SLIGHTLY CLOUDY Abnormal CLEAR [facility] Comment on above: Performed By: #### B HCG #### [email or web address] [address] [place] [phone] Name Plate Stamping Machine Operator: Vic Bean MD Color (U) Yellow Normal [facility] Comment on above: Performed By: #### B HCG #### [address] [address] Name Plate Stamping Machine Operator: Vic Bean MD Glucose Ql (U) Negative Normal NEG [facility] Comment on above: Performed By: #### B HCG #### [facility] [address] [address] Name Plate Stamping Machine Operator: Vic Bean MD Ketones Ql (U) Negative Normal NEG [facility] Comment on above: Performed By: #### B HCG #### [address] [address] Name Plate Stamping Machine Operator: Vic Bean MD Leukocyte esterase Test strip Ql (U) SMALL Abnormal NEG [facility] Comment on above: Performed By: #### B HCG #### [address] [address] Name Plate Stamping Machine Operator: Vic Bean MD Nitrite,Ur Negative Normal NEG [facility] Comment on above: Performed By: #### B HCG #### [address] [address] Name Plate Stamping Machine Operator: Vic Bean MD PH,Ur 6.5 Normal 5.0-9.0 [facility] Comment on above: Performed By: #### B HCG #### [address] [address] Name Plate Stamping Machine Operator: Vic Bean MD Protein Ql (U) Negative Normal NEG [facility] Comment on above: Performed By: #### B HCG #### [address] [address] Name Plate Stamping Machine Operator: Vic Bean MD Spec. [place],Ur <1.005 Low 1.010-1.020 [facility] Comment on above: Performed By: #### B HCG #### [address] [address] Name Plate Stamping Machine Operator: Vic Bean MD Urobilinogen,Ur Normal Normal 0.0-1.0 [facility] Comment on above: Performed By: #### B HCG #### [address] [address] Name Plate Stamping Machine Operator: Vic Bean MD Urinalysis,Microon 4 Bacteria 3+ Abnormal NONE [facility] Comment on above: Performed By: #### B HCG #### [address] [address] Name Plate Stamping Machine Operator: Vic Bean MD Epithelial cells LM Ql (Urine sed) 2 TO 5 Normal 0-25 [facility] Comment on above: Performed By: #### B HCG #### [address] [address] Name Plate Stamping Machine Operator: Vic Bean MD Urine RBC's None Normal 0-2 [facility] Comment on above: Performed By: #### B HCG #### [address] [address] Name Plate Stamping Machine Operator: Vic Bean MD Urine WBC's 2 TO 5 Normal 0-5 [facility] Comment on above: Performed By: #### B HCG #### [address] [address] Name Plate Stamping Machine Operator: Vic Bean MD Rule Out Grp.B Strepon 03-23 Rule Out Grp.B Strep Specimen Descriptio n .VAGINA Special Requests Site: Genital Culture NEGATIVE FOR GROUP B STREPTOCOCCI Report Status FINAL 03/23/2024 [facility] Comment on above: Performed By: #### R OGBS #### [address] [address] Name Plate Stamping Machine Operator: Vic Bean MD [facility] [address] [place] [address] Name Plate Stamping Machine Operator: Rashaun Bonner MD Cult,Urineon 09-21-2023 Cult,Urine Specimen Description .CLEAN CATCH URINE Culture NO GROWTH Report Status FINAL 09/21/2023 [facility] Comment on above: Performed By: #### C DP #### [facility] [address] [place] [address] Name Plate Stamping Machine Operator: Rashaun Bonner MD Urinalysis, Routineon 2023 Bilirubin, SemiQt,Ur Negative Normal NEG [facility] Comment on above: Performed By: #### C DP #### [facility] [address] [place], [place] [id number] Name Plate Stamping Machine Operator: Rashaun Bonner MD Blood, Urine TRACE Abnormal NEG [facility] Comment on above: Performed By: #### C DP #### [facility] [address] [place], [place] [id number] Name Plate Stamping Machine Operator: Rashaun Bonner MD Clarity (U) Clear Normal CLEAR [facility] Comment on above: Performed By: #### C DP #### [facility] [address] [place], [place] [id number] Name Plate Stamping Machine Operator: Rashaun Bonner MD Color (U) Yellow Normal YEL [facility] Comment on above: Performed By: #### C DP #### [facility] [address] [place] [address] Dr[place], [place] [id number] Name Plate Stamping Machine Operator: Rashaun Bonner MD Glucose Ql (U) Negative Normal NEG [facility] Comment on above: Performed By: #### C DP #### [facility] [address] [place], [place] [id number] Name Plate Stamping Machine Operator: Rashaun Bonner MD Ketones Ql (U) Negative Normal NEG [facility] Comment on above: Performed By: #### C DP #### [facility] [address] [place] [address] Name Plate Stamping Machine Operator: Rasahun Bonner MD Leukocyte esterase Test strip Ql (U) SMALL Abnormal NEG [facility] Comment on above: Performed By: #### C DP #### [facility] [address] [place] [id number] Name Plate Stamping Machine Operator: Rashaun Bonner MD Nitrite,Ur Negative Normal NEG [facility] Comment on above: Performed By: #### C DP #### [facility] [address] [place] [address] Name Plate Stamping Machine Operator: Rashaun Bonner MD PH,Ur 6.5 Normal 5.0-9.0 [facility] Comment on above: Performed By: #### C DP #### [facility] [address] [place], [place] [phone] Name Plate Stamping Machine Operator: Rashaun Bonner MD Protein Ql (U) Negative Normal NEG [facility] Comment on above: Performed By: #### C DP #### [address] [place] [phone] Name Plate Stamping Machine Operator: Rashaun Bonner MD Spec. [place],Ur <1.005 Low 1.010-1.020 [facility] Comment on above: Performed By: #### C DP #### [facility] [address] [place] [address] Dr[place], [place] [phone] Name Plate Stamping Machine Operator: Rashaun Bonner MD Urobilinogen,Ur Normal Normal 0.0-1.0 [facility] Comment on above: Performed By: #### C DP #### [facility] [address] [place] [address] Dr[place], [place] [address] Name Plate Stamping Machine Operator: Rashaun Bonner MD Urinalysis,Microon 4 Bacteria 2+ Abnormal NONE [facility] Comment on above: Performed By: #### C DP #### [facility] [address] [place] [address] Dr. [place], [id number] Name Plate Stamping Machine Operator: Rashaun Bonner MD Epithelial cells LM Ql (Urine sed) 2 TO 5 Normal 0-25 [facility] Comment on above: Performed By: #### C DP #### [facility] [address] [place] [address] Name Plate Stamping Machine Operator: Rashaun Bonner MD Urine RBC's 0 TO 2 Normal 0-2 [facility] Comment on above: Performed By: #### C DP #### [facility] [address] [place] [address] Name Plate Stamping Machine Operator: Rashaun Bonner MD Urine WBC's 5 TO 10 Normal 0-5 [facility] Comment on above: Performed By: #### C DP #### [facility] [address] [place] [address] Name Plate Stamping Machine Operator: Rashaun Bonner MD Chlamydia/GC DNA, Uron 09-09 Chlamydia Probe, Ur Negative Normal NEG [facility] Comment on above: Result Comment: CHLA MYDIA TRACHOMATIS DNA not detected by nucleic acid amplification. This test is intended for medical purposes only and is not valid for the evaluation of suspected sexual abuse or for other forensic purposes. In certain contexts, culture may be required to meet applicable laws and regulations for diagnosis of C. trachomatis and N. gonorrhoeae infections. Per 2014 CDC recommendations, this test does not include confirmation of positive results by an alternative nucleic acid target. Performed By: #### U CGP #### [address] [id number] Name Plate Stamping Machine Operator: Vic Bean MD Gonorrhea Probe, Ur Negative Normal NEG [facility] Comment on above: Result Comment: NEIS SERIA GONORRHOEAE DNA not detected by nucleic acid amplification. This test is intended for medical purposes only and is not valid for the evaluation of suspected sexual abuse or for other forensic purposes. In certain contexts, culture may be required to meet applicable laws and regulations for diagnosis of C. trachomatis and N. gonorrhoeae infections. Per 2014 CDC recommendations, this test does not include confirmation of positive results by an alternative nucleic acid target. Performed By: #### U CGP #### [address] [place], [place] [id number] Name Plate Stamping Machine Operator: Vic Bean MD Cult,Urineon 09-10-2023 Cult,Urine Specimen Description .CLEAN CATCH URINE Culture NO GROWTH Report Status FINAL 09/10/2023 Normal [facility] Comment on above: Performed By: #### C DP #### [facility] [address] [place] [address] [place] [address] Name Plate Stamping Machine Operator: Rashaun Bonner MD HIV Ag/Abon 09-09-2023 HIV Ag/Ab Non-Reactive Normal NR [facility] Comment on above: Result Comment: No l aboratory evidence of HIV infection. If acute HIV infection is suspected, consider testing for HIV-1 RNA. Performed By: #### P RENAT #### [address] [place] [address] Name Plate Stamping Machine Operator: Vic Bean MD [address] [place] [address] Name Plate Stamping Machine Operator: Rashaun Bonner MD Hemoglobin A1Con 09-09-2023 Glucose [Mass/Vol] 91 mg/dL [facility] Comment on above: Result Comment: The ADA and AACC recommend providing the estimated average glucose result to permit better patient understanding of their HBA1c result. Performed By: #### P RENAT #### [address] [place] [address] Name Plate Stamping Machine Operator: Vic Bean MD [address] [place] [address] Name Plate Stamping Machine Operator: Rashaun Bonner MD HbA1c (Bld) [Mass fraction] 4.8 % Normal 4.0-6.0 [facility] Comment on above: Performed By: #### P RENAT #### [address] [place] [address] Name Plate Stamping Machine Operator: Vic Bean MD [facility] [address] [place] [address] [place] [address] Name Plate Stamping Machine Operator: Rashaun Bonner MD Hep C Abon 09-09-2023 Hep C Ab Non-Reactive Normal [facility] Comment on above: Result Comment: The hepatitis C procedure used in our laboratory is a Chemiluminescent test specific for three recombinant HCV antigens. A negative anti-HCV result indicates that the antibodies to hepatitis C virus are not present at this time. Individuals with reactive anti-HCV should be considered infected and infectious until proven otherwise. Confirmation of all equivocal or reactive results is recommended by ordering HCV RNA by PCR. Performed By: #### P RENAT #### [address] [address] Name Plate Stamping Machine Operator: Vic Bean MD [address] [place] [address] Name Plate Stamping Machine Operator: Rashaun Bonner MD Profileon 4 Hep B Surf Ag Non-Reactive Normal [facility] Comment on above: Performed By: #### P RENAT #### [address] [address] Name Plate Stamping Machine Operator: Vic Bean MD [address] [place] [phone] Name Plate Stamping Machine Operator: Rashaun Bonner MD Rubella Ab, IgG 101.0 IU/mL [facility] Comment on above: Result Comment: <10 NON REACTIVE Negative for Anti-Rubella IgG >=10 REACTIVE Positive for Anti Rubella IgG The presence of IgG antibody to Rubella virus is an indication of previous exposure either by prior infection or vaccination. Performed By: #### P RENAT #### [address] [address] Name Plate Stamping Machine Operator: Vic Bean MD [address] [place] [phone] Name Plate Stamping Machine Operator: Rashaun Bonner MD T.pallidum Ab Screen Non-Reactive Normal [facility] Comment on above: Result Comment: T. pallidum antibodies are not detected. There is no serological evidence of infection with T. pallidum (early primary syphilis cannot be excluded). Retest in 2-4 weeks if syphilis is clinically suspect. Performed By: #### P RENAT #### [address] [address] Name Plate Stamping Machine Operator: Vic Bean MD [address] [place] [phone] Name Plate Stamping Machine Operator: Rashaun Bonner MD Abs. Basophil 0.05 k/uL Normal 0.00-0.20 [facility] Comment on above: Performed By: #### P RENAT #### [address] [address] Name Plate Stamping Machine Operator: Vic Bean MD [address] [place] [address] Name Plate Stamping Machine Operator: Rashaun Bonner MD Abs.Imm.Granulocyte 0.03 k/uL Normal 0.00-0.30 [facility] Comment on above: Performed By: #### P RENAT #### [place] [address] Name Plate Stamping Machine Operator: Vic Bean MD [address] [place] [address] Name Plate Stamping Machine Operator: Rashaun Bonner MD Abs.Neutrophil (Seg) 7.06 k/uL Normal 1.50-8.10 [facility] Comment on above: Performed By: #### P RENAT #### [place] [address] Name Plate Stamping Machine Operator: Vic Bean MD [address] [place] [address] Name Plate Stamping Machine Operator: Rashaun Bonner MD Basophils/100 WBC (Bld) 1 % Normal 0-2 [facility] Comment on above: Performed By: #### P RENAT #### [address] [address] Name Plate Stamping Machine Operator: Vic Bean MD [address] [place] [address] Name Plate Stamping Machine Operator: Rashaun Bonner MD Eosinophils (Bld) [#/Vol] 0.11 10*3/uL Normal 0.00-0.44 [facility] Comment on above: Performed By: #### P RENAT #### [address] [address] Name Plate Stamping Machine Operator: Vic Bean MD [facility] [address] [place] [address] [place] [address] Name Plate Stamping Machine Operator: Rashaun Bonner MD Eosinophils/100 WBC (Bld) 1 % Normal 1-4 [facility] Comment on above: Performed By: #### P RENAT #### [address] [address] Name Plate Stamping Machine Operator: Vic Bean MD [facility] [address] [place] [address] [place] [address] Name Plate Stamping Machine Operator: Rashaun Bonner MD Erythrocyte distribution width (RBC) [Ratio] 12.9 % Normal 11.8-14.4 [facility] Comment on above: Performed By: #### P RENAT #### [address] [address] Name Plate Stamping Machine Operator: Vic Bean MD [facility] [address] [place] [address] [place] [address] Name Plate Stamping Machine Operator: Rashaun Bonner MD Hematocrit (Bld) [Volume fraction] 41.1 % Normal 36.3-47.1 [facility] Comment on above: Performed By: #### P RENAT #### [address] [address] Name Plate Stamping Machine Operator: Vic Bean MD [facility] [address] [place] [address] [place] [address] Name Plate Stamping Machine Operator: Rashaun Bonner MD Hemoglobin (Bld) [Mass/Vol] 14.3 g/dL Normal 11.9-15.1 [facility] Comment on above: Performed By: #### P RENAT #### [address] [address] Name Plate Stamping Machine Operator: Vic Bean MD [facility] [address] [place] [address] [place]. [place] [phone] Name Plate Stamping Machine Operator: Rashaun Bonner MD Immature granulocytes/100 WBC (Bld) 0 % Normal 0 [facility] Comment on above: Performed By: #### P RENAT #### [address] [place] [address] Name Plate Stamping Machine Operator: Vic Bean MD [facility] [address] [place] [address] [place]. [place] [phone] Name Plate Stamping Machine Operator: Rashaun Bonner MD Lymphocytes (Bld) [#/Vol] 1.65 10*3/uL Normal 1.10-3.70 [facility] Comment on above: Performed By: #### P RENAT #### [address] [address] Name Plate Stamping Machine Operator: Vic Bean MD [address] [place] [phone] Name Plate Stamping Machine Operator: Rashaun Bonner MD Lymphocytes/100 WBC (Bld) 17 % Low 24-43 [facility] Comment on above: Performed By: #### P RENAT #### [address] [address] Name Plate Stamping Machine Operator: Vic Bean MD [address] [place] [address] Name Plate Stamping Machine Operator: Rashaun Bonner MD MCH (RBC) [Entitic mass] 31.0 pg Normal 25.2-33.5 [facility] Comment on above: Performed By: #### P RENAT #### [address] [address] Name Plate Stamping Machine Operator: Vic Bean MD [facility] [address] [place] [address] [place] [address] Name Plate Stamping Machine Operator: Rashaun Bonner MD MCHC (RBC) [Mass/Vol] 34.8 g/dL Normal 28.4-34.8 [facility] Comment on above: Performed By: #### P RENAT #### [address] [address] Name Plate Stamping Machine Operator: Vic Bean MD [address] [place] [phone] Name Plate Stamping Machine Operator: Rashaun Bonner MD MCV (RBC) [Entitic vol] 89.2 fL Normal 82.6-102.9 [facility] Comment on above: Performed By: #### P RENAT #### [address] [address] Name Plate Stamping Machine Operator: Vic Bean MD [address] [place] [phone] Name Plate Stamping Machine Operator: Rashaun Bonner MD Monocytes (Bld) [#/Vol] 0.78 10*3/uL Normal 0.10-1.20 [facility] Comment on above: Performed By: #### P RENAT #### [address] [address] Name Plate Stamping Machine Operator: Vic Bean MD [address] [place] [phone] Name Plate Stamping Machine Operator: Rashaun Bonner MD Monocytes/100 WBC (Bld) 8 % Normal 3-12 [facility] Comment on above: Performed By: #### P RENAT #### [address] [address] Name Plate Stamping Machine Operator: Vic Bean MD [address] [place] [phone] Name Plate Stamping Machine Operator: Rashaun Bonner MD Neutrophil (Seg) 73 % High 36-65 [facility] Comment on above: Performed By: #### P RENAT #### [address] [address] Name Plate Stamping Machine Operator: Vic Bean MD [address] [place] [phone] Name Plate Stamping Machine Operator: Rashaun Bonner MD NRBC Automated 0.0 per 100 WBC Normal 0.0 [facility] Comment on above: Performed By: #### P RENAT #### [address] [address] Name Plate Stamping Machine Operator: Vic Bean MD [facility] [address] [place] [address] [place], [place] [phone] Name Plate Stamping Machine Operator: Rashaun Bonner MD Platelet mean volume (Bld) [Entitic vol] 8.5 fL Normal 8.1-13.5 [facility] Comment on above: Performed By: #### P RENAT #### [address] [address] Name Plate Stamping Machine Operator: Vic Bean MD [address] [place] [address] Name Plate Stamping Machine Operator: Rashaun Bonner MD Platelets (Bld) [#/Vol] 391 10*3/uL Normal 138-453 [facility] Comment on above: Performed By: #### P RENAT #### [address] [address] Name Plate Stamping Machine Operator: Vic Bean MD [address] [place] [phone] Name Plate Stamping Machine Operator: Rashaun Bonner MD RBC (Bld) [#/Vol] 4.61 10*6/uL Normal 3.95-5.11 [facility] Comment on above: Performed By: #### P RENAT #### [address] [address] Name Plate Stamping Machine Operator: Vic Bean MD [facility] [address] [place] [address] [place]. [place] [phone] Name Plate Stamping Machine Operator: Rashaun Bonner MD WBC (Bld) [#/Vol] 9.7 10*3/uL Normal 3.5-11.3 [facility] Comment on above: Performed By: #### P RENAT #### [address] [id number] Name Plate Stamping Machine Operator: Vic Bean MD [facility] [address] [place] [address] Name Plate Stamping Machine Operator: Rashaun Bonner MD Type + Scrnon 09-08 Type + Scrn Negative [facility] Comment on above: Performed By: #### C DP #### [facility] [address] [place] [address] Name Plate Stamping Machine Operator: Rashaun Bonner MD HCG, Quanton 09-07-2023 HCG, Quant 52177.0 mIU/mL High 0-7 [facility] Comment on above: Result Comment: Non-preg premeno <=5 Postmeno <=8 Male <=3 If HCG results do not concur with clinical observations, additional testing to confirm results is recommended. Performed By: #### B HCG #### [address] [id number] Name Plate Stamping Machine Operator: Vic Bean MD Type + Screenon 09-06-2023 Type + Screen Sample Expiration 09/09/2023,2359 Arm Band Number HIDE ABO/Rh(D) A POSITIVE Antibody Screen NEGATIVE [facility] Comment on above: Performed By: #### B HCG #### [address] [phone] Name Plate Stamping Machine Operator: Vic Bean MD HPV DNA High Riskon 06-15-19 24 HPV Interp [facility] Comment on above: Result Comment: This test amplifies and detects DNA of 14 high-risk HPV types associated with cervical cancer and its precursor lesions (HPV types 16,18, 31, 33, 35, 39, 45, 51, 52, 56, 58, 59, 66, and 68). Sensitivity may be affected by specimen collection methods, stage of infection, and the presence of interfering substances. Results should be interpreted in conjunction with other available laboratory and clinical data. A negative high-risk HPV result does not exclude the possibility of future cytologic HSIL or underlying CIN2-3 or cancer. This test is intended for medical purposes only and is not valid for the evaluation of suspected sexual abuse or for other forensic purposes. Performed By: #### C DP #### [facility] [address] [place] [address] [place], [place] [phone] Name Plate Stamping Machine Operator: Rashaun Bonner MD HPV Type 16 Not detected Normal [facility] Comment on above: Performed By: #### C DP #### [facility] [address] [place] [address] [place], [place] [phone] Name Plate Stamping Machine Operator: Rashaun Bonner MD HPV Type 18 Not detected [facility] Comment on above: Performed By: #### C DP #### [facility] [address] [place] [address] [place], [place] [phone] Name Plate Stamping Machine Operator: Rashaun Bonner MD Other High Risk HPV Not detected [facility] Comment on above: Performed By: #### C DP #### [facility] [address] [place] [address] [place] [address] Name Plate Stamping Machine Operator: Rashaun Bonner MD HPV Sample .THIN PREP [facility] Comment on above: Performed By: #### C DP #### [facility] [address] [place] [address] [place], [place] [phone] Name Plate Stamping Machine Operator: Rashaun Bonner MD Source CERVICAL MATERIAL Normal [facility] Comment on above: Performed By: #### C DP #### [facility] [address] [place] [address] [place], [place] [phone] Name Plate Stamping Machine Operator: Rashaun Bonner MD Cytology Reporton 06-14-2023 Cytology report Cyto stain.thin prep Doc (Cvx/Vag) (NOTE) Path Number: [id number] DIAGNOSIS Imaged ThinPrep Pap - Cervical (1 monolayer slide): Specimen Adequacy: Satisfactory for evaluation. - Endocervical/transfor mation zone component present. Descriptive Diagnosis: Negative for intraepithelial lesion or malignancy. Comments: Specimen was screened at [facility], [address] [place] [id number] [employer] Screener: CS Electronically Signed Out NIKKI Self(ASCP) /07/17/2023 Procedure/Addendum HPV Procedure Report Date Ordered: 06/15/2023 Status: Signed Out Date Complete: 06/15/2023 By: System Interface Date Reported: 06/15/2023 Sample: HPV Type 16 Result: Not Detected Ref Range: (Not Detected) Sample: HPV Type 18 Result: Not Detected Ref Range: (Not Detected) Sample: Other High Risk HPV Result: Not Detected Ref Range: (Not Detected) Sample: HPV Interp Result: Ref Range: (Not Detected) This test amplifies and detects DNA of 14 high-risk HPV types associated with cervical cancer and its precursor lesions (HPV types 16,18, 31, 33, 35, 39, 45, 51, 52, 56, 58, 59, 66, and 68). Sensitivity may be affected by specimen collection methods, stage of infection, and the presence of interfering substances. Results should be interpreted in conjunction with other available laboratory and clinical data. A negative high-risk HPV result does not exclude the possibility of future cytologic HSIL or underlying CIN2-3 or cancer. This test is intended for medical purposes only and is not valid for the evaluation of suspected sexual abuse or for other forensic purposes. Performed at [facility] [address] [place] [address] ([phone] Source of Specimen: A: Imaged ThinPrep Pap - Cervical (1 monolayer slide) HPV Reflex?.............. 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 The Pap smear is a screening test primarily for squamous epithelial lesions, which is subject to both false negative and false positive results. Your patient should be reminded to consult you immediately if she experiences any suspicious signs or symptoms, regardless of her Pap smear result. GYNECOLOGIC CYTOLOGY REPORT Patient Name: JL HOWE [facility] Rec: [id number] [facility] ANATOMIC PATHOLOGY [address] [place] [id number] Normal [facility] Progesteroneon 10-07-2022 Progesterone [Mass/Vol] 1.85 ng/mL [facility] Comment on above: FEMALE (healthy): Follicular phase 0.06-0.89 Ovulation phase 0.12-12.00 Luteal phase 1.83-23.90 Postmenopausal <0.13 [facility] Progesteroneon 09-01-2022 Progesterone [Mass/Vol] 2.98 ng/mL [facility] Comment on above: FEMALE (healthy): Follicular phase 0.06-0.89 Ovulation phase 0.12-12.00 Luteal phase 1.83-23.90 Postmenopausal <0.13 [facility] Progesteroneon 07-20-2022 Progesterone [Mass/Vol] ng/mL ng/mL [facility] Comment on above: FEMALE (healthy): Follicular phase 0.06-0.89 Ovulation phase 0.12-12.00 Luteal phase 1.83-23.90 Postmenopausal <0.13 [facility] CBC AUTO DIFFon 09-17-2018 Basophils #/vol (Bld) 0.1 103/ul Normal 0.0-0.1 [facility] Comment on above: Performed By: #### H FPFCBC #### [facility] [address] [place], [place] [address] Bayron Daria Basophils/100 WBC (Bld) 1.0 % Normal 0.2-2.0 [facility] Comment on above: Performed By: #### H FPFCBC #### [facility] [address] [place], [place] [address] Bayron Daria Eosinophils #/vol (Bld) 0.1 103/ul Normal 0.0-0.7 [facility] Comment on above: Performed By: #### H FPFCBC #### [facility] [address] [place], [place] [address] Bayron Daria Eosinophils/100 WBC (Bld) 1.5 % Normal 0.9-7.0 [facility] Comment on above: Performed By: #### H FPFCBC #### [facility] [address] [place] [address] Bayron Huff Erythrocyte distribution width Ratio (RBC) 13.8 % Normal 11.0-15.0 [facility] Comment on above: Performed By: #### H FPFCBC #### [facility] [address] [place] [address] Bayron Huff Hematocrit Volume Fraction (Bld) 43.9 % Normal 36.0-48.0 [facility] Comment on above: Performed By: #### H FPFCBC #### [facility] [address] [place] [address] Bayron Huff Hemoglobin mass conc (Bld) 14.6 g/dL Normal 12.0-16.0 [facility] Comment on above: Performed By: #### H FPFCBC #### [facility] [address] [place] [address] Bayron Huff IG # 0.03 10e3/ul Normal 0.00-0.03 [facility] Comment on above: Performed By: #### H FPFCBC #### [facility] [address] [place] [address] Bayron Huff IG % 0.3 % Normal 0.0-0.5 [facility] Comment on above: Performed By: #### H FPFCBC #### [facility] [address] [place] [address] Bayron Huff Lymphocytes #/vol (Bld) 3.1 103/ul Normal 1.2-3.8 [facility] Comment on above: Performed By: #### H FPFCBC #### [facility] [address] [place] [address] Bayron Huff Lymphocytes/100 WBC (Bld) 32.9 % Normal 20.5-60.0 [facility] Comment on above: Performed By: #### H FPFCBC #### [facility] [address] [place] [address] Bayron Huff MCH Entitic mass (RBC) 29.1 pg Normal 26.7-34.0 [facility] Comment on above: Performed By: #### H FPFCBC #### [facility] [address] [place], [place] [id number] Bayron Huff MCHC mass conc (RBC) 33.3 g/dL Normal 29.9-35.2 [facility] Comment on above: Performed By: #### H FPFCBC #### [facility] [address] [place], [place] [id number] Bayronjarred Huff MCV Entitic volume (RBC) 87.6 fL Normal 81.0-99.0 [facility] Comment on above: Performed By: #### H FPFCBC #### [facility] [address] [place] [address] Bayron Daria Monocytes #/vol (Bld) 0.7 103/ul Normal 0.3-0.8 [facility] Comment on above: Performed By: #### H FPFCBC #### [facility] [address] [place] [address] Bayron Daria Monocytes/100 WBC (Bld) 7.4 % Normal 1.7-12.0 [facility] Comment on above: Performed By: #### H FPFCBC #### [facility] [address] [place] [address] Bayronjarred Huff Neutrophils #/vol (Bld) 5.3 103/ul Normal 1.4-6.5 [facility] Comment on above: Performed By: #### H FPFCBC #### [facility] [address] [place] [address] Bayronjarred Huff Neutrophils/100 WBC (Bld) 56.9 % Normal 43.0-75.0 [facility] Comment on above: Performed By: #### H FPFCBC #### [facility] [address] [place], [place] [id number] Bayronjarred Huff Platelet mean volume Entitic volume (Bld) 8.7 fL Critically low 9.5-13.5 [facility] Comment on above: Performed By: #### H FPFCBC #### [facility] [address] [place], [place] [id number] Bayron Huff Platelets #/vol (Bld) 387 103/ul Normal 150-450 [facility] Comment on above: Performed By: #### H FPFCBC #### [facility] [address] [place] [id number] Bayron Huff RBC #/vol (Bld) 5.01 106/ul Normal 4.20-5.40 [facility] Comment on above: Performed By: #### H FPFCBC #### [facility] [address] [place], [place] [id number] Bayron Huff WBC #/vol (Bld) 9.3 103/ul Normal 4.0-11.[address] [facility] Comment on above: Performed By: #### H FPFCBC #### [facility] [address] [place], [place] [id number] Bayron Huff [facility] PROFILEon 019 Albumin mass conc 3.8 g/dL Normal 3.5-5.0 [facility] Comment on above: Performed By: #### H FPF #### [facility] [address] [place], [place] [id number] Bayron Daria Albumin/Globulin mass ratio 0.9 {ratio} Normal [facility] Comment on above: Performed By: #### H FPF #### [facility] [address] [place], [place] [id number] Bayron Daria ALP enzyme act/vol 87 U/L Normal 38-126 [facility] Comment on above: Performed By: #### H FPF #### [facility] [address] [place], [place] [id number] Bayron Daria ALT enzyme act/vol 45 U/L Normal 9-52 [facility] Comment on above: Performed By: #### H FPF #### [facility] [address] [place], [place] [id number] Bayron Daria AST enzyme act/vol 26 U/L Normal 14-36 [facility] Comment on above: Performed By: #### H FPF #### [facility] [address] [place], [place] [id number] Bayron Daria Bilirubin Ql (U) 0.3 mg/dL Normal 0.2-1.3 [facility] Comment on above: Performed By: #### H FPF #### [facility] [address] [place], [place] [address] Bayron Daria Calcium mass conc 9.2 mg/dL Normal 8.4-10.2 [facility] Comment on above: Performed By: #### H FPF #### [facility] [address] [place] [id number] Bayron Daria Chloride molar conc 101 mmol/L Normal 98-107 [facility] Comment on above: Performed By: #### H FPF #### [facility] [address] [place], [place] [id number] Bayron Daria CHOL-HDL RATIO NORM SEE BELOW Normal [facility] Comment on above: Result Comment: 3.3 - 4.4 LOW RISK 4.4 - 7.1 AVERAGE RISK 7.1 - 11.0 MODERATE RISK >11.0 HIGH RISK Performed By: #### H FPF #### [facility] [address] [place], [place] [id number] Bayron Daria Cholesterol in HDL mass conc > or = 60 mg/dl - LOW CARDIOVASCULAR RISK <40 mg/dl - HIGH CARDIOVASCULAR RISK Normal [facility] Comment on above: Performed By: #### H FPF #### [facility] [address] [place], [place] [id number] Bayron Daria Cholesterol in HDL mass conc 36 mg/dL Normal [facility] Comment on above: Performed By: #### H FPF #### [facility] [address] [place] [id number] Bayron Daria Cholesterol in LDL mass conc 194.8 mg/dL Normal [facility] Comment on above: Performed By: #### H FPF #### [facility] [address] [place], [place] [id number] Bayron Daria Cholesterol in LDL mass conc SEE BELOW Normal [facility] Comment on above: Result Comment: <100 mg/dl OPTIMAL 100 - 129 mg/dl NEAR OR ABOVE OPTIMAL 130 - 159 mg/dl BORDERLINE HIGH 160 - 189 mg/dl HIGH >190 mg/dl VERY HIGH Performed By: #### H FPF #### [facility] [address] [place] [address] Bayron Daria Cholesterol mass conc 286 mg/dL Critically high <=200 [facility] Comment on above: Performed By: #### H FPF #### [facility] [address] [place] [address] Bayron Daria Cholesterol.total/Cho lesterol in HDL mass ratio 7.9 {ratio} Normal [facility] Comment on above: Performed By: #### H FPF #### [facility] [address] [place] [address] Bayron Daria CO2 molar conc 25.4 mmol/L Normal 22.0-30.[address] [facility] Comment on above: Performed By: #### H FPF #### [facility] [address] [place] [address] Bayron Daria Creatinine mass conc 0.83 mg/dL Normal 0.52-1.04 [facility] Comment on above: Performed By: #### H FPF #### [facility] [address] [place] [address] Bayron Daria Globulin mass conc (S) 4.2 g/dL Normal [facility] Comment on above: Performed By: #### H FPF #### [facility] [address] [place] [address] Bayron Daria Glucose mass conc 85 mg/dL Normal 74-106 [facility] Comment on above: Performed By: #### H FPF #### [facility] [address] [place] [address] Bayron Daria Potassium molar conc 3.3 mmol/L Critically low 3.4-5.0 [facility] Comment on above: Performed By: #### H FPF #### [facility] [address] [place] [place] [address] Bayron Daria Protein mass conc 8.0 g/dL Normal 6.1-8.2 [facility] Comment on above: Performed By: #### H FPF #### [facility] [address] [place] [address] Bayron Daria Sodium molar conc 137 mmol/L Normal 137-145 [facility] Comment on above: Performed By: #### H FPF #### [facility] [address] [place] [id number] Bayron Huff Thyrotropin Qn 2.375 uIU/mL Normal 0.470-4.680 [facility] Comment on above: Performed By: #### H FPF #### [facility] [address] [place] [id number] Bayron Huff Triglyceride mass conc 276 mg/dL Critically high <=150 [facility] Comment on above: Performed By: #### H FPF #### [facility] [address] [place] [id number] Bayron Huff Urea nitrogen mass conc 9.0 mg/dL Normal 7.0-17.0 [facility] Comment on above: Performed By: #### H FPF #### [facility] [address] [place] [address] Bayron Huff Urea nitrogen/Creatinine mass ratio 10.8 mg/mg Normal [facility] Comment on above: Performed By: #### H FPF #### [facility] [address] [place] [id number] Bayron Huff VLDL CALC 55.2 mg/dL Normal [facility] Comment on above: Performed By: #### H FPF #### [facility] [address] [place] [address] Bayron Huff Vital Signs Date Time Vital Sign Value Performing Clinician Shawn nath 04-20-2024 07:46-0500 Body temperature 97.9 [degF] Nicholas Ahmadi ANAIS - AFSHAN Work Phone: [facility] 04-20-2024 07:46-0500 Diastolic blood pressure 58 mm[Hg] Nicholas Ahmadi ANAIS - CNSusan Work Phone: [facility] 04-20-2024 07:46-0500 Heart rate 89 /min Nicholas Ahmadi ANAIS - CN Work Phone: [facility] 04-20-2024 07:46-0500 Respiratory rate 18 /min Nicholas Farooq CNM Work Phone: [employer] 04-20-2024 07:46-0500 SaO2% (BldA) [Mass fraction] 95 % Nicholas Faroqo CNM Work Phone: [employer] 04-20-2024 07:46-0500 Systolic blood pressure 114 mm[Hg] Nicholas Farooq CNM Work Phone: [employer] 04-18-2024 18:22-0500 Body height 160 cm Nicholas Farooq CNM Work Phone: [employer] 04-18-2024 18:22-0500 Body mass index (BMI) [Ratio] 42.16 kg/m2 Nicholas Farooq CNM Work Phone: [employer] 04-18-2024 18:22-0500 Body weight 107.96 kg Nicholas Farooq CNM Work Phone: [employer] 04-03-2024 11:58-0500 Diastolic blood pressure 81 mm[Hg] Katelynn Farooq CNM Work Phone: [employer] 04-03-2024 11:58-0500 Heart rate 82 /min Katelynn Woodall APRN Oseas CAVANAUGH Work Phone: [employer] 04-03-2024 11:58-0500 Respiratory rate 16 /min Katelynn Farooq CNM Work Phone: [employer] 04-03-2024 11:58-0500 Systolic blood pressure 123 mm[Hg] Katelynn Woodall APRN Oseas CAVANAUGH Work Phone: [employer] 04-03-2024 11:43-0500 Body temperature 97.81 [degF] Katelynn Woodall APRN Oseas CRAMERM Work Phone: [employer] 04-03-2024 10:44-0500 SaO2% (BldA) [Mass fraction] 97 % Katelynn Woodall HIGH SPEED WARPER TENDER - CNM Work Phone: [facility] Encounters Encounter Date Encounter Type Care Provider Facility Start: 04-18-2024 End: 04-20-2024 Evaluation and management of inpatient KATELYNN WOODALL [facility] Start: 04-03-2024 End: 04-03-2024 ambulatory [facility] Start: 04-03-2024 End: 04-03-2024 Subsequent hospital visit by physician Katelynn Woodall HIGH SPEED WARPER TENDER - CNM Work Phone: [facility] Start: 03-20-2024 End: 03-20-2024 ambulatory [facility] Start: 03-20-2024 End: 03-20-2024 Subsequent hospital visit by physician Maddie Lozoya MD Work Phone: [facility] Comment on above: 36 weeks gestation o f Start: 09-20-2023 End: 09-20-2023 ambulatory [facility] Start: 09-09-2023 End: 09-09-2023 ambulatory [facility] Start: 09-06-2023 End: 09-06-2023 ambulatory KATELYNN More[facility] Start: 06-14-2023 End: 06-14-2023 ambulatory [facility] Start: 06-14-2023 Encounter for gynecological examination (general) (routine) without abnormal findings [facility] Start: 10-07-2022 End: 10-07-2022 Subsequent hospital visit by physician Maddie Lozoya MD Work Phone: [facility] Comment on above: Amenorrhea; Infertility, female Start: 09-01-2022 End: 09-01-2022 Subsequent hospital visit by physician Maddie Lozoya MD Work Phone: [facility] Comment on above: Anovulatory cycle Start: 07-20-2022 End: 07-20-2022 Subsequent hospital visit by physician Maddie Lozoya MD Work Phone: [facility] Comment on above: Infertility, female Start: 09-17-2018 End: 09-18-2018 Patient encounter procedure MADDIE LOZOYA Facility:H1 Procedures Date Procedure Procedure Detail Performing Clinician Start: 04-18-2024 End: 04-18-2024 Comprehensive metabolic panel Katelynn Woodall HIGH SPEED WARPER TENDER - CNM Work Phone: Start: 04-18-2024 Blood typing serologic abo Katelynn Woodall HIGH SPEED WARPER TENDER - CNM Work Phone: Start: 04-03-2024 End: 04-03-2024 Comprehensive metabolic panel Katelynn Woodall HIGH SPEED WARPER TENDER - CNM Work Phone: Start: 04-03-2024 Urinalysis microscopic only Katelynn Woodall HIGH SPEED WARPER TENDER - CNM Work Phone: Start: 04-03-2024 Urnls dip stick/tabl et rgnt auto w/o microscopy Katelynn Woodall HIGH SPEED WARPER TENDER - CNM Work Phone: Start: 06-14-2023 Microscopic observat ion [Identifier] in Cervix by Cyto stain Maddie Lozoya MD Work Phone: Start: 10-07-2022 Assay of progesterone K nuria E Pool HIGH SPEED WARPER TENDER - CNM Work Phone: Start: 09-01-2022 Assay of progesterone K nuria E Pool HIGH SPEED WARPER TENDER - CNM Work Phone: Start: 07-20-2022 Assay of progesterone K athlekacy E Pool HIGH SPEED WARPER TENDER - CNM Work Phone: Start: 06-09-2022 Microscopic observat ion [Identifier] in Cervix by Cyto stain Maddie Lozoya MD Work Phone: Plan of Treatment Date Care Activity Detail Author Start: 06-14-2028 Screening for malign ant neoplasm of cervix [facility] Start: 06-09-2027 Screening for malign ant neoplasm of cervix [facility] [employer] Start: 09-08-2026 Diabetes screen [facility] Start: 06-14-2026 Screening for malign ant neoplasm of cervix [facility] Start: 06-09-2025 Screening for malign ant neoplasm of cervix Pap smear [facility] Start: 04-03-2025 Influenza vaccination Flu vaccine (# 1) [facility] Comment on above: Postponed from 12/08 (Patient Refused) Start: 03-13-2025 DTaP/Tdap/Td vaccine (1 - Tdap) DTaP/Tdap/Td vaccine (1 - Tdap) [facility] Comment on above: Postponed from 11/14 (Patient Refused) Start: 06-21-2024 End: 06-21-2024 Patient encounter procedure 06/21/2024 10:10 AM EST Office Visit [facility]YNECOLOGY [address] [place] [address] Katelynn Woodall, HIGH SPEED WARPER TENDER - CNM [address] [place] [address] Dr [address] [place] [address] yearly [facility]ST[facility] Comment on above: yearly Start: 06-14-2024 Depression Screen Depression Screen [facility] Start: 05-31-2024 End: 05-31-2024 ambulatory 05/31/2024 1:20 PM EST Visit [address] [place] [address] Katelynn Woodall, HIGH SPEED WARPER TENDER - CNM [address] [place] [address] Dr [address] [place] [address] 6 week pp [facility] Comment on above: 6 week pp Start: 04-20-2024 End: 04-20-2024 Patient encounter procedure 04/20/2024 9:00 AM EST Routine [facility]ST[facility] [address] [place], [place] [phone] Katelynn Woodall, HIGH SPEED WARPER TENDER - CNM [address] [place] [address] Dr [address] [place] [address] OB NST [facility] Comment on above: OB NST Start: 04-19-2024 End: 04-19-2024 Anesthesia consultation 04/19/2024 11:59 PM EST Anesthesia Event [facility] [address] [place] [address] Desmond Mustafa APRN - CRNA [facility] Start: 04-17-2024 End: 04-17-2024 Patient encounter procedure 04/17/2024 10:30 AM EST Routine [facility]YNECOLOGY Part of [address] [place] [address] Katelynn Woodall APRN - CNSusan [address] [place] [address] [address] [place] [address] OB BPP [facility] Comment on above: OB BPP Start: 04-17-2024 End: 04-17-2024 Professional / ancillary services management 04/17/2024 10:00 AM EST Ancillary Procedure [facility]RICS [facility] of [address] [place] [id number] OB BPP [facility] Comment on above: OB BPP Start: 04-10-2024 End: 04-10-2024 Patient encounter procedure 04/10/2024 9:45 AM EST Routine [facility]ICS [facility] Part [address] [place] [address] Nicholas Ahmadi APRN - CNSusan [address] [place], [place] [id number] OB BPP KP PT [facility] Comment on above: OB BPP KP PT Start: 04-10-2024 End: 04-10-2024 Professional / ancillary services management 04/10/2024 8:30 AM EST Ancillary Procedure [facility] GYNECOLOGY Part [address] [place] [address] OB BPP [facility]YNECOLOGY Part [facility] Comment on above: OB BPP Start: 04-03-2024 Tdap Vaccine during Tdap Vaccine during [facility] Comment on above: Postponed from 01/13 (Patient Refused) Start: 04-03-2024 End: 04-03-2024 Patient encounter procedure 04/03/2024 10:00 AM EST Routine [facility] & GYNECOLOGY Part of [address] [place] [address] Katelynn Woodall, HIGH SPEED WARPER TENDER - CNM [address] [place] [address] Dr [address] [place] [address] OB BPP [facility] OBSTETRICS [facility]ECOLOGY Part [facility] Comment on above: OB BPP Growth Start: 04-03-2024 End: 04-03-2024 Professional / ancillary services management 04/03/2024 9:30 AM EST Ancillary Procedure [facility]YNECOLOG[facility] Part of [address] [place] [address] OB BPP [facility] OBSTETRICS & GYNECOLOGY Part [facility] Comment on above: OB BPP growth Start: 03-27-2024 End: 03-27-2024 Patient encounter procedure 03/27/2024 11:30 AM EST Routine [facility]ECOLOG[facility] Part of [address] [place] [address] Katelynn Woodall, HIGH SPEED WARPER TENDER - CN[address] Quinter[address] [place] [address] OB BPP [facility] OBSTETRICS [facility] Comment on above: OB BPP Start: 03-27-2024 End: 03-27-2024 Professional / ancillary services management 03/27/2024 11:00 AM EST Ancillary Procedure [facility] Part of [address] [place] [address] OB BPP [facility]ST[facility] & GYNECOLOGY Part [facility] Comment on above: OB BPP Start: 02-18-2024 Respiratory Syncytia l Virus (RSV) or age 60 yrs+ (1 - Risk 1-dose series) Respiratory Syncytial Virus (RSV) or age 60 yrs+ (1 - Risk 1-dose series) [facility] Start: 01-14-2024 Tdap Vaccine during Tdap Vaccine during [facility] Start: 01-09-2024 COVID-19 Vaccine ( season) COVID-19 Vaccine ( season) [facility] Start: 12-09-2023 Influenza vaccination Flu vaccine (# 1) [facility] Start: 06-14-2023 End: 06-14-2023 Patient encounter procedure 06/14/2023 Office Visit Obstetrics and Gynecology Katelynn Woodall APRN - AFSHAN [address] [place] [address] [facility]ST[facility] & GYNECOLOGY [facility] Start: 06-09-2023 Depression Screen Depression Screen [facility] Start: 12-08-2022 Influenza vaccination Flu vacc ine (Season Ended) [facility] Start: 07-28-2022 End: 07-28-2022 Patient encounter procedure 07/28/2022 Office Visit Obstetrics and Gynecology Katelynn Woodall APRN - AFSHAN [address] [place] [address] [facility] OBSTETRICS GYNECOLOGY [facility] Start: 12-08-2021 Influenza vaccination Flu vaccine (# 1) [facility] Start: 2020 Diabetes screen Diabetes screen [facility] Start: 2004 DTaP/Tdap/Td vaccine (1 - Tdap) DTaP/Tdap/Td vaccine (1 - Tdap) [facility] Start: 2004 Hepatitis B vaccine (1 of 3 - 19+ 3-dose series) Hepatitis B vaccine (1 of 3 - 19+ 3-dose series) [facility] Start: 11-15-2003 Hepatitis C screening Hepatitis C sc reen [facility] Start: 2000 HIV screening HIV screen [facility] Start: 1998 Varicella vaccine (1 of 2 - 13+ 2-dose series) Varicella vaccine (1 of 2 - 13+ 2-dose series) [facility] Start: 1986 Varicella vaccine (1 of 2 - 2-dose childhood series) Varicella vaccine (1 of 2 - 2-dose childhood series) [facility] Start: 05-17-1986 COVID-19 Vaccine (#1) COVID-19 Vacci ne (#1) [facility] End: 04-03-2024 Bacteria identified in Urine by Culture Urine culture Microbiology Routine One Time for 1 Occurrences starting 04/03/2024 until 04/03/2024 [facility] Comment on above: One Time for 1 Occur rences starting 04/03/2024 until 04/03/2024 End: 03-20-2024 Culture, Strep B Screen, Vaginal/Rectal [facility] Comment on above: 1 Occurrences starti ng 03/20/2024 until 03/20/2024 nonstress test nonst ress test OB Routine Daily until discontinued [facility]/04/2024 [facility] on above: Daily until disconti nued starting 04/04/2024 End: 04-19-2024 SCREEN SCREEN Blood Bank Routine One Time for 1 Occurrences starting 04/19/2024 until 04/19/2024 [facility] Comment on above: One Time for 1 Occur rences starting 04/19/2024 until 04/19/2024 End: 04-19-2024 [facility] NOTIFICATION [facility] NOTIFICATION Blood Bank Routine One Time for 1 Occurrences starting 04/19/2024 until 04/19/2024 [facility] on above: One Time for 1 Occur rences starting 04/19/2024 until 04/19/2024 End: 04-03-2024 SVE SVE Point of Care Testing Routine One Time for 1 Occurrences starting 04/03/2024 until 04/03/2024 [facility] Comment on above: One Time for 1 Occur rences starting 04/03/2024 until 04/03/2024 Immunizations Immunization Date Immunization Notes Care Provider Nancy garzajuan 04-19-2024 diphtheria, tetanus toxoids and acellular pertussis vaccine, unspecified formulation Nicholas Ahmadi H[employer] WARPER TENDER - CN Work Phone: [employer] 04-19-2024 measles, mumps and rubella virus vaccine Nicholas Ahmadi HIGH SPEED WARPER TENDER - CNM Work Phone: [facility] [facility] Payers Date Payer Category Payer Self-pay [id number] Unknown [id number] Social History Date Type Detail Facility Start: 06-09-2022 Tobacco smoking stat [facility] Never smoked tobacco [employer] Work Phone: Start: 06-09-2022 Tobacco use and exposure Smoke less tobacco non-user [employer] Work Phone: Start: 07-15-2022 End: 07-28-2022 Alcohol intake Ex-drinker (finding) [employer] Work Phone: Start: 07-15-2022 History SDOH Financial 5 [employer] Work Phone: Start: 07-15-2022 History SDOH Food Worry 1 [employer] Work Phone: Start: 07-15-2022 History SDOH Transpo rt Non-Med 2 [employer] Work Phone: Start: 1985 Sex Assigned At Not on file B ON [employer] Work Phone: Start: 03-20-2024 End: 04-19-2024 Alcoholic beverage intake Lifetime non-drinker (finding) [employer] Start: 03-20-2024 End: 04-18-2024 History of Social function [facility] Start: 03-20-2024 End: 04-18-2024 Tobacco use panel [facility] How hard is it for y ou to pay for the very basics like food, housing, medical care, and heating Not very hard [facility] Patient Health Questionnaire 9 item (PHQ-9) total score [Reported] 0 [facility] (I/We) worried whesotero er (my/our) food would run out before (I/we) got money to buy more. Never true [facility] Start: 07-23-2023 [facility] Has the [employer], or water [employer] threatened to shut off services in your home in past 12Mo No [facility] The thought of agnieszka romero myself has occurred to me Never [facility] Clinical Notes 04-03-2024 to 04-20-2024 Discharge InstructionsKatelynn Woodall APRN - CNM - 04/20/2024 9:21 AM Katelynn De La Paz APRN - CN - 04/20/2024 9:19 AM Katelynn De La Paz APRN - CNM - 04/19/2024 6:09 AM EST Note Date & Type Note Facility 04-20-2024 Hospital Discharg e instructions Adin Morse RN - 04/20/2024 12:23 PM EST Follow-up with your OB doctor as specified. [facility] OB Department phone: Dr. Rick CRAMER Dr. Emiliana CRAMER Nicholas Ahmadi [address] [address] [place] or [place] DIET Eat a well balanced diet focusing on foods high in fiber and protein. Drink plenty of fluids especially water. To avoid constipation you may take a mild stool softener as recommended by your doctor or vp account director. ACTIVITY Gradually increase your activity. Resume exercise regimen only after advice by your doctor or vp account director. Avoid lifting anything heavier than a gallon of milk for SIX weeks. Avoid driving until your doctor or vp account director has given their approval. Rise slowly from a lying to sitting and then a standing position. Climb stairs one at a time. Use caution when carrying your baby up and down the stairs. NO SEXUAL Activity for 6 weeks or until advised by your doctor; Nothing in vagina: intercourse, tampons, or douching. No swimming or tub baths x 6 weeks. Be prepared to discuss family planning at your follow-up OB visit. You may feel tired or have a lack of energy. You may continue your vitamin to replenish nutrients post delivery. Nap when baby naps to catch up on sleep. EMOTIONS Baby blues are common for the first 1 to 2 weeks after . You may cry or feel sad or irritable for no reason. Rest whenever you can. Being tired makes it harder to handle your emotions. Talk to your partner, friends, and family about your feelings. If your symptoms last for more than a few weeks, or if you feel very depressed or have thoughts of harming yourself or your , contact your OB provider for help. An example of what to say could be I have some symptoms of post depression, can I please arrange an appointment depression can be treated. Support groups and counseling can help. Medication can also help. If infant will not stop crying, contact another adult for help or place in their crib on their back and take a break. NEVER shake your infant. BLEEDING Vaginal bleeding will decrease in amount over the next few weeks. You will notice that as your activity increases, your flow may increase. This is your body's way of telling you, you need to take things easier and rest more often. Call your care provider if you are saturating more than one maxi pad in an hour & resting does not help. BREAST CARE Take medications as recommended by your doctor or vp account director for pain If you develop a warm, red, tender area on your breast or develop a fever contact your OB provider. For moms: If you become engorged, feeding may be more difficult or painful for 1-2 days. You may find it helpful to hand express some milk so that the can latch on more easily. While , continue to take your vitamins as directed by your doctor or vp account director. Refer to the booklet in the folder/binder for more information. If you feel you need more assistance or have questions, please call Anupama Chan IBCLC, art sales consultant, at or the OB department to schedule an appointment or phone consultation. For more FREE help, visit the Support Group on Wednesday evenings at 7 pm in the OB department. For NON- moms: You may apply ice packs to your breasts over your bra for twenty minutes at a time for comfort. Avoid stimulation to your breasts, when showering allow the water to strike your back not your breasts. Wear a good fitting bra until your milk dries, such as a sports bra. CORTNEY CARE Use the cortney-bottle after toileting until bleeding stops. Cleanse your perineum from front to back If used, stitches will dissolve in 4-6 weeks. You may use a sitz bath or soak in a clean tub as needed for comfort. Kegel exercises will help restore bladder control. SWELLING Try to keep your legs elevated when you are sitting. When lying down keep your legs elevated. When wearing stocking or socks, make sure they are not too tight. WHEN TO CALL THE DOCTOR If you have a temp of 100.6 or more. If your bleeding has increased and you are saturating a pad in an hour. Your abdomen is tender to touch. You are passing blood clots bigger than the size of a lemon. If you are experiencing extreme weakness or dizziness. If you are having flu-like symptoms such as achy muscles or joints. There is a foul smell or a green color to your vaginal bleeding. If you have pain that cannot be relieved. You have persistent burning or frequency with urination. Call if you have concerns about your well-being. You are unable to sleep, eat, or are having thoughts of harming yourself or your baby. You have swelling, bleeding, drainage, foul odor, redness, or warmth in/around your incision or stitches. You have a red, warm, tender area in your calf. documented in this encounter [facility] 04-20-2024 Hospital course Narrative Obstetrical Discharge Form Gestational Age:40w5d Antepartum complications: post-term Date of Delivery: 04/19/24 Type of Delivery: Delivered By: Julio César Woodall APRN, CNM Assisted By:N/A Baby: male Anesthesia: none Intrapartum complications: None Feeding method: breast Blood type: A POSITIVE Rubella: Rubella Antibody, IgG Date Value Ref Range Status 09/09/2023 101.0 IU/mL Final Comment: <10 NON REACTIVE Negative for Anti-Rubella IgG >=10 REACTIVE Positive for Anti Rubella IgG The presence of IgG antibody to Rubella virus is an indication of previous exposure either by prior infection or vaccination. T. Pallidium, IGG: T. pallidum, IgG Date Value Ref Range Status 09/09/2023 NONREACTIVE NONREACTIVE Final Comment: T. pallidum antibodies are not detected. There is no serological evidence of infection with T. pallidum (early primary syphilis cannot be excluded). Retest in 2-4 weeks if syphilis is clinically suspect. Hepatitis B Surface Antigen: Hepatitis B Surface Ag Date Value Ref Range Status 09/09/2023 NONREACTIVE NONREACTIVE Final HIV: HIV Ag/Ab Date Value Ref Range Status 09/09/2023 NONREACTIVE NONREACTIVE Final Comment: No laboratory evidence of HIV infection. If acute HIV infection is suspected, consider testing for HIV-1 RNA. Results for orders placed or performed during the hospital encounter of 04/18/24 CBC auto differential Result Value Ref Range WBC 13.3 (H) 3.5 - 11.3 k/uL RBC 4.88 3.95 - 5.11 m/uL Hemoglobin 15.3 (H) 11.9 - 15.1 g/dL Hematocrit 44.2 36.3 - 47.1 % MCV 90.6 82.6 - 102.9 fL MCH 31.4 25.2 - 33.5 pg MCHC 34.6 28.4 - 34.8 g/dL RDW 14.2 11.8 - 14.4 % Platelets 223 138 - 453 k/uL MPV 9.7 8.1 - 13.5 fL NRBC Automated 0.0 0.0 per 100 WBC Neutrophils % 77 (H) 36 - 65 % Lymphocytes % 15 (L) 24 - 43 % Monocytes % 7 3 - 12 % Eosinophils % 1 1 - 4 % Basophils % 0 0 - 2 % Immature Granulocytes % 0 0 % Neutrophils Absolute 10.09 (H) 1.50 - 8.10 k/uL Lymphocytes Absolute 2.02 1.10 - 3.70 k/uL Monocytes Absolute 0.96 0.10 - 1.20 k/uL Eosinophils Absolute 0.10 0.00 - 0.44 k/uL Basophils Absolute 0.04 0.00 - 0.20 k/uL Immature Granulocytes Absolute 0.05 0.00 - 0.30 k/uL Comprehensive Metabolic Panel Result Value Ref Range Sodium 137 136 - 145 mmol/L Potassium 3.9 3.7 - 5.3 mmol/L Chloride 105 98 - 107 mmol/L CO2 20 20 - 31 mmol/L Anion Gap 12 9 - 16 mmol/L Glucose 75 74 - 99 mg/dL BUN 10 6 - 20 mg/dL Creatinine 0.7 0.50 - 0.90 mg/dL Est, Glom Filt Rate >90 >60 mL/min/1.73m2 BUN/Creatinine Ratio 14 9 - 20 Calcium 9.8 8.6 - 10.4 mg/dL Total Protein 6.8 6.6 - 8.7 g/dL Albumin 3.6 3.5 - 5.2 g/dL Albumin/Globulin Ratio 1.1 1.0 - 2.5 Total Bilirubin 0.3 0.00 - 1.20 mg/dL Alkaline Phosphatase 195 (H) 35 - 104 U/L ALT 9 (L) 10 - 35 U/L AST 17 10 - 35 U/L Lactate Dehydrogenase Result Value Ref Range LD 169 135 - 214 U/L Uric Acid Result Value Ref Range Uric Acid 4.7 2.4 - 5.7 mg/dL Protime-INR Result Value Ref Range Protime 12.5 11.7 - 14.1 sec INR 1.0 Protein / creatinine ratio, urine Result Value Ref Range Total Protein, Urine 10 mg/dL Creatinine, Ur 34.4 28.0 - 217.0 mg/dL Urine Total Protein Creatinine Ratio 0.29 (H) 0.00 - 0.20 APTT Result Value Ref Range APTT 24.0 (L) 26.8 - 34.8 sec TYPE AND SCREEN Result Value Ref Range Blood Bank Sample Expiration 04/21/2024,2359 Arm Band Number [id number] ABO/Rh A POSITIVE Antibody Screen NEGATIVE complications: none Discharge Medication: Medication List CONTINUE taking these medications Vitamins 28-0.8 MG Tabs Take 1 tablet by mouth daily Admit date: 04/18/2024 6:10 PM Discharge Date: 04/20/2024 Discharged to: Home in stable condition Plan: Follow up in 6 week(s) for post visit documented in this encounter [facility] 04-20-2024 History of Presen t illness Narrative Department of Obstetrics and Gynecology Labor and Delivery Post Progress Note SUBJECTIVE: PT states she is doing well and denies needs at this time. PT would like to go home. OBJECTIVE: Vitals: BP (!) 114/58 Pulse 89 Temp 97.9 F (36.6 C) (Oral) Resp 18 Ht 1.6 m (5' 3 ) Wt 108 kg (238 lb) LMP 06/29/2023 (Approximate) SpO2 95% Unknown BMI 42.16 kg/m Patient Vitals for the past 24 hrs: BP Temp Temp src Pulse Resp SpO2 04/20/24 0746 (!) 114/58 97.9 F (36.6 C) Oral 89 18 95 % 04/20/24 0430 114/62 97.6 F (36.4 C) Oral 97 20 -- 04/19/24 2308 122/70 98.1 F (36.7 C) Oral (!) 112 16 -- 04/19/246 135/76 98.9 F (37.2 C) Oral (!) 114 16 -- 04/19/24 1630 122/73 -- -- (!) 118 16 -- 04/19/24 1341 132/75 -- -- (!) 117 16 -- 04/19/24 1310 128/89 -- -- (!) 109 16 -- 04/19/24 1254 138/84 97.9 F (36.6 C) Oral 90 17 -- 04/19/24 1252 135/84 -- -- (!) 108 16 -- 04/19/24 1240 (!) 143/81 -- -- (!) 110 16 -- 04/19/24 1224 135/74 -- -- (!) 114 16 -- 04/19/24 1210 129/63 -- -- (!) 111 16 -- 04/19/24 1154 134/84 -- -- (!) 107 16 -- 04/19/24 1140 124/79 -- -- (!) 104 16 -- 04/19/24 1124 (!) 143/80 99.4 F (37.4 C) Oral (!) 105 16 -- 04/19/24 1109 138/71 -- -- (!) 112 16 -- 04/19/24 1013 132/77 -- -- 93 18 -- 04/19/24 0943 (!) 147/78 98.7 F (37.1 C) Oral (!) 102 18 -- ABDOMEN: normal shape, position and consistency GENITAL/URINARY: External Genitalia: General appearance; normal, Hair distribution; normal, Lesions absent Uterus: Size normal, Contour normal Breast:normal appearance, no masses or tenderness Cor: RRR no Murmurs Pulmonary: clear to auscultation anterior and posterior Extremities: no Clubbing cyanosis or ecchymosis DATA: ASSESSMENT : Principal Problem: Third trimester Active Problems: Amniotic fluid leaking Post-term , 40-42 weeks of gestation (normal spontaneous vaginal delivery) Plan: Discharge home Department of Obstetrics and Gynecology Progress Note SUBJECTIVE: pt is talking and pushing as I present to the room. PT does not appear to have the urge to push with every contractions.pt states some contractions are stronger than others. OBJECTIVE: Vitals: 04/19/24 0311 04/19/24 0321 04/19/24 0331 04/19/24 0341 BP: (!) 144/73 (!) 145/83 (!) 150/87 (!) 140/85 Pulse: 90 97 (!) 101 98 Resp: 18 Temp: 98.1 F (36.7 C) TempSrc: Oral SpO2: Weight: Height: heart rate: Baseline Heart Rate: 134 Accelerations: absent Penitentiary Variability: minimal Decelerations: variable Contraction frequency: 4-5 minutes Membranes: leaking Cervix: Dilation: 6-7 Effacement: 90% Station: -1 Position: mid Baby acynclitic ASSESSMENT & PLAN: Start Pitocin Continuous EFM Initiate LR @150 ml/ hr Note: I was called and told pt complete with no urge to push.plan was to let pt labor down and then start pushing when she had pressure. Pt began to push with the contractions- I presented around the hour noe to check on pt and found the contractions to be mild and pt 6-7. After discussion with pt and family we decided to start pitocin to assist the contractions in becoming more effective. Grady calls unit and speaks with RN for update. Provider would like RN to start pushing with patient and then update provider on progress. 0255- two RN's at bedside for practice pushing to assess decent and monitor FHR with doppler while pushing,FHR as charted 0303-RN calls Grady to discuss patients labor status,patient reports feeling some pressure and more during contractions but denies feeling urge to push or constant pressure,RN also reports practice pushing . Provider would like patient to continue laboring down, side lying release both sides for 15 minutes each then back on idris. 0304- RN to bedside to discuss plan of care with patient,patient agreeable 0305-pt in left side lying release RN calls Grady CNSusan to report abnormal BP readings, no new orders given. Grady also updated on most recent SVE as well as patients position,Grady okay with patient laboring down RN calls Grady to update her on most recent SVE and elevated BP as well as most recent BP,RN also asked if she could place order for viscous lidocaine,verbal order given to place order. RN to room to discuss plan of care with patient,patient is agreeable RN calls Grady to update her on patient labor status and abnormal BP, verbal order given for labetalol 200 mg PO [id number] RN at bedside assessing FHR via doppler 2015- RN at bedside to adjust ultrasound and remains at bedside until 2028 assessing heart rate and contraction pattern 2036-SVE as charted 2040-RN calls Grady to discuss lab results,and current patient and labor status.Per Grady as long as contractions maintain the frequency they are currently then patient does not have to use breast pump and RN is okay to continue with intermittent monitoring and is to use a doppler every 30 minutes to assess FHR and also monitor BP hourly 2047- RN to bedside to discuss plan of care with patient,patient is agreeable and states understanding. AFSHAN Ibarra aware of elevated BP readings, new orders given for additional lab work. third shift lieutenant RN assuming care given updated report. Also received orders for intermittent monitoring. Verified with AFSHAN Ibarra pt's primary OB that she is available and planning to manage. AFSHAN Ibarra gave orders to admit d/t rupture and reported that she will manage. Amnio Swab completed, pH 7.0, swab positive. Fluid noted when asking pt to cough for swab. SVE completed, see charting. 38yo F arrives ambulatory to [facility] with c/o possible rupture. Pt reports she noticed a gush and has had constant leaking since. Pt reports it occurred around 1630 today. Pt nasir vaginal bleeding, reports some light pink noted when wiping. Reports +FM. Pt instructed to provide urine specimen and change into gown. Pt placed on EFM, denies concerns at this time. Call light within reach, SO remains at bedside. documented in this encounter [facility] 04-03-2024 [facility] Discharg Yisel Carey RN - 04/03/2024 12:00 PM EST OUTPATIENT DISCHARGE Dr. Rick Woodall [facility] Dr. Emiliana Bowers [address] or [place] ACTIVITY LIMITATIONS: ( x )Up and about as desired and tolerated ( )Up to bathroom only ( )Lay on either side ( )Avoid heavy lifting or exercise ( )No sex ( )No nipple stimulation ( )Complet bedrest ( )Avoid using stairs ( x )Increase fluids DRINK AT LEAST eight-8oz. Glasses of water daily. Call your Doctor if: ( x )Contractions are every 5 minutes apart (from start of one to the start of the next contraction) lasting 60 seconds for at least 1 hour, strong enough you can not walk or talk through the contraction and regular. ( x )Bag of water breaks ( x )Vaginal bleeding ( x )Unusual pain occurs ( x )Decreased movement ( ) labor: If you have 4 contractions in an hour Keep your scheduled follow up appointment. Or call for a follow up on . IN CASE OF EMERGENCY CONTACT LABOR AND DELIVERY . documented in this encounter [employer] 04-03-2024 History of Presen t illness Narrative Julio César Paez [facility] unit at this time. Relayed all b/p readings since arrival top L&D. No new orders received at this time. Primary RN Yisel made aware. documented in this encounter [employer] Evaluation note Diagnosis Infertility, female Female infertility of unspecified origin documented in this encounter [employer] Phone: evaluation note* Diagnosis Anovulatory cycle Female infertility associated with anovulation documented in this encounter [employer] Phone: evalppoelp note* Diagnosis Amenorrhea Absence of menstruation Infertility, female Female infertility of unspecified origin documented in this encounter [employer] Phone: evalgyiseg note* Diagnosis 36 weeks gestation of state, incidental documented in this encounter [facility]* Diagnosis Gestational hypertension affecting first - Primary documented in this encounter [employer] note* Diagnosis Third trimester - Primary Amniotic fluid leaking Premature rupture of membranes in , unspecified as to episode of care Post-term , 40-42 weeks of gestation Post term , unspecified episode of care (normal spontaneous vaginal delivery) Normal delivery documented in this encounter [employer] Summary Purpose Family History No Family History Records FoundNo Family History Records Found Advance Directives Date Activated Date Inactivated Comments 04/03/2024 10:26 AM Date Activated Date Inactivated Comments 04/18/2024 6:55 PM 04/19/2024 1:40 PM Date Activated Date Inactivated Comments 04/03/2024 10:26 AM 04/03/2024 2:42 PM Additional Source Comments INFORMATION SOURCE (unrecogn ized section and content) DATE CREATED AUTHOR 09/29/2018 [facility] DATE CREATED AUTHOR AUTHOR'S ORGANIZ ATION 04/22/2024 [facility] Teams (unrecognized sec tion and content) Supervisor [employer] Relationship Specialty Start Date End Date Maddie Lozoya MD [address] [id number] PCP - General Family Medicine 06/09/22 Supervisor [employer] Relationship Specialty Start Date End Date Maddie Lozoya MD [address] [id number] PCP - General Family Medicine 06/09/22 Supervisor [employer] Relationship Specialty Start Date End Date Maddie Lozoya MD [address] [id number] PCP - General Family Medicine 06/09/22 Supervisor [employer]tic [employer]ning Relationship Specialty Start Date End Date Maddie Lozoya MD [address] [place] [address] PCP - General Family Medicine 06/09/22 Supervisor [employer]tic [employer]ning Relationship Specialty Start Date End Date Maddie Lozoya MD [address] [id number] PCP - General Family Medicine 06/09/22 Reason for Visit (unrecogniz ed section and content) Reason Comments Hypertension Reason Comments Rupture of Membranes Scheduled Active and Recently Administ ered Medications (unrecognized section and content) Medication Order 04/18/2024 04/19/2024 04/20/2024 ibuprofen (ADVIL;MOTRIN) tablet 800 mg 800 mg, Oral, EVERY 8 HOURS SCHEDULED (3 times per day), First dose on Wed04/19/24 at 1400, Until Discontinued, Once tolerating PO, discontinue Ketorolac and begin ibuprofen 8 hours after the final dose of Ketotolac. Alternate ibuprofen and acetaminophen every 4 hours., 1400 (Due)2035 (Given - Provider: Brynn Bernal RN) 0749 (Given - Provider: Yisel Ly RN)1400 (Due)2200 (Due) labetalol (NORMODYNE) tablet 200 mg (COMPLETED) 200 mg, Oral, ONCE, 1 dose, On Wed04/18/24 at 8573 6313 (Given - Provider: Laya Hale RN) lidocaine viscous hcl (XYLOCAINE) 2 % solution 30 mL (COMPLETED) 30 mL, Vaginal, ONCE, 1 dose, On Wed04/19/24 at 0045 1136 (Given - Provider: Yisel Ly RN) measles, mumps & rubella vaccine (MMR) injection 0.5 mL 0.5 mL, SubCUTAneous, PRIOR TO DISCHARGE, 1 dose, Starting on Wed04/19/24 at 1340, Until Discontinued, PRN prior to discharge if patient is known to be rubella non-immune or equivocal status. , sodium chloride flush 0.9 % injection 5-40 mL (CANCELED) 5-40 mL, IntraVENous, EVERY 12 HOURS SCHEDULED (2 times per day), First dose on Wed04/18/24 at 2100, Until Discontinued, For Line Patency: Peripheral IV = 5 mL; Midline or Central Line = 10 mL/lumen. If following IV push medication, administer flush at same rate as the IV push. Flush volume is determined by type of infusion therapy being given. For non-viscous solutions use: Peripheral IV = 5 mL Midline or Central Line = 10 mL/lumen For viscous solutions (i.e. blood components, parenteral nutrition, contrast media, or after obtaining blood sample) use: Peripheral IV = 10 mL Midline or Central Line = 20 mL/lumen, Labor and Delivery 2100 (Due) 0614 (Given - Provider: Laya Hale RN)0900 (Due) sodium chloride flush 0.9 % injection 5-40 mL 5-40 mL, IntraVENous, EVERY 12 HOURS SCHEDULED (2 times per day), First dose on Wed04/19/24 at 2100, Until Discontinued, For Line Patency: Peripheral IV = 5 mL; Midline or Central Line = 10 mL/lumen. If following IV push medication, administer flush at same rate as the IV push. Flush volume is determined by type of infusion therapy being given. For non-viscous solutions use: Peripheral IV = 5 mL Midline or Central Line = 10 mL/lumen For viscous solutions (i.e. blood components, parenteral nutrition, contrast media, or after obtaining blood sample) use: Peripheral IV = 10 mL Midline or Central Line = 20 mL/lumen, 2100 (Due) 0900 (Due)2100 (Due) bzctfwu-lhxxcn-rswon pertussis (BOOSTRIX) injection 0.5 mL 0.5 mL, IntraMUSCular, PRIOR TO DISCHARGE, 1 dose, Starting on Wed04/19/24 at 1340, Until Discontinued, If not previously administered during at 27-36 weeks as recommended by CDC., Continuous Medication Order 04/18/2024 04/19/2024 04/20/2024 lactated ringers infusion (CANCELED) IntraVENous, at 125 mL/hr, CONTINUOUS, Starting on Wed04/18/24 at 1915, Labor and Delivery 1926 (Held - Provider: Deborah Briceno RN - Reason: Other - Comment: per provider saline lock at this time) 0614 (New Bag - Provider: Laya Hale RN - Comment: per verbal order)0655 (Rate/Dose Verify - Provider: Laya Hale RN)0713 (Rate/Dose Verify - Provider: Marleny Hdz RN)0734 (Rate/Dose Change - Provider: Yisel Ly RN)0746 (Rate/Dose Change - Provider: Yisel Ly RN)0746 (Rate/Dose Change - Provider: Yisel Ly RN)0836 (Paused - Provider: Yisel Ly RN)0836 (Paused - Provider: Yisel Ly RN)0845 (Restarted - Provider: Yisel Ly RN)0856 (Paused - Provider: Yisel Ly RN)0904 (Restarted - Provider: Yisel Ly RN)1037 (Rate/Dose Change - Provider: Yisel Ly RN)1046 (Rate/Dose Change - Provider: Yisel Ly RN)1047 (Rate/Dose Change - Provider: Yisel Ly RN)1104 (Rate/Dose Change - Provider: Yisel Ly RN)1135 (Rate/Dose Verify - Provider: Yisel Ly RN) oxytocin (PITOCIN) 30 units in 500 mL infusion (CANCELED) 1-24 víctor-units/min (1-24 mL/hr), IntraVENous, CONTINUOUS, Starting on Wed04/18/24 at 1915, Until Wed04/19/24 at 1340, Begin infusion at 1 víctor-unit/min (1 víctor-unit per min = 1 mL per hour) . Then increase by 2 víctor-units/min as needed, no faster than every 30 minutes, until labor is achieved. Labor is defined as contractions every 2-3 minutes with cervical changes or Condon units (MVU) greater than 200 in a 10-minute window. Maximum infusion rate: 24 víctor-unit/min. Contact provider if maximum rate does not achieve desired response. Provider may order alternative titration goal or other clinically appropriate goal of titration rate (s). Smaller titration increments of 1 víctor-units/min, not faster than every 30 minutes, may be used when approaching therapeutic goal after discussion with provider. If unable to increase call provider and let them know. At time of needed increase, Labor and Delivery 1927 (Held - Provider: Deborah Briceno RN - Reason: Other - Comment: per provider hold at this time) 0621 (New Bag - Provider: Laya Hale RN)0650 (Rate/Dose Change - Provider: Laya Hale RN)0712 (Rate/Dose Verify - Provider: Marleny Hdz RN)0712 (Rate/Dose Change - Provider: Marleny Hdz RN)0713 (Rate/Dose Verify - Provider: Marleny Hdz RN)0848 (Rate/Dose Change - Provider: Marleny Hdz RN)0853 (Rate/Dose Verify - Provider: Marleny Hdz RN)0941 (Rate/Dose Change - Provider: Yisel Ly RN)0958 (Rate/Dose Verify - Provider: Yisel Ly RN)1014 (Rate/Dose Change - Provider: Yisel Ly RN)1017 (Rate/Dose Verify - Provider: Yisel Ly RN)1104 (Rate/Dose Change - Provider: Yisel Ly RN)1116 (Rate/Dose Change - Provider: Yisel Ly RN)1116 (Rate/Dose Change - Provider: Yisel Ly, TAY)1135 (Rate/Dose Verify - Provider: Yisel Ly, RN) PRN Medication Order 04/18/2024 04/19/2024 04/20/2024 acetaminophen (TYLENOL) tablet 1,000 mg 1,000 mg, Oral, EVERY 8 HOURS PRN, Starting on Wed04/19/24 at 1340, Until Discontinued, Pain Mild (1-3), Allowed for higher pain score per patient request, Maximum dose of acetaminophen is 4000mg from all sources in 24 hours. Alternate ibuprofen and acetaminophen every 4 hours., benzocaine-menthol (DERMOPLAST) 20-0.5 % spray Topical, PRN, Pain, Starting on Wed04/18/24 at 1853, Apply to perineal area. Patient is capable and may self administer at bedside. 1351 (Given - Provider: Yisel Ly, TAY) carboprost (HEMABATE) injection 250 mcg 250 mcg, IntraMUSCular, PRN, Starting on Wed04/19/24 at 1340, Until Discontinued, bleeding, May repeat every 15 minutes up to a cumulative maximum dose of 1000 mcg, at physician's request., docusate sodium (COLACE) capsule 100 mg 100 mg, Oral, 2 TIMES DAILY PRN, Starting on Wed04/19/24 at 1340, Until Discontinued, Constipation, Do not crush or break., 0749 (Given - Provid er: Yisel Ly RN) lansinoh lanolin ointment Topical, PRN, Dry Skin, nipple discomfort, Starting on Wed04/19/24 at 1340, lidocaine PF 1 % injection 30 mL (COMPLETED) 30 mL, Other, PRN, 1 dose, Starting on Wed04/18/24 at 1853, Until Wed04/19/24 at 1128, Pain, for perineal laceration/episiotomy repair, Post Delivery 1128 (Given - Provider: Yisel Ly RN) miSOPROStol (CYTOTEC) tablet 200 mcg 200 mcg, Buccal, PRN, Starting on Wed04/19/24 at 1340, Until Discontinued, For Post- Hemorrhage, ondansetron (ZOFRAN) injection 4 mg(Linked Group 1) 4 mg, IntraVENous, EVERY 6 HOURS PRN, Starting on Wed04/19/24 at 1340, Until Discontinued, Nausea, Vomiting, Administer if oral route cannot be used., ondansetron (ZOFRAN-ODT) disintegrating tablet 4 mg(Linked Group 1) 4 mg, Oral, EVERY 6 HOURS PRN, Starting on Wed04/19/24 at 1340, Until Discontinued, Nausea, Vomiting, Rho(D) immune globulin (HYPERRHO;RHOGAM;RHOPHYLAC) injection 300 mcg 300 mcg, IntraMUSCular, ONCE PRN, 1 dose, Starting on Wed04/19/24 at 1340, Until Deidre 04/20/24 at 1340, Other, If patient's blood type is Rh- and infant's blood type is Rh+ as indicated., Give injection if patient's blood type is Rh- and infant's blood type is Rh+ as indicated., tranexamic acid (CYKLOKAPRON) 1,000 mg in sodium chloride 0.9 % 100 mL IVPB (Nhbm1Pin) 1,000 mg, IntraVENous, at 600 mL/hr, Administer over 10 Minutes, ONCE PRN, Post Hemorrhage, Starting on Wed04/19/24 at 1340, For 1 dose, If bleeding continues, give one more gram within 3 hours of . Use 20mm (Blue) [id number] Adapter Preparation instructions: Attach medication vial to one 20mm (Blue) [id number] adapter. Alexys fluid bag with adapter, mix, and administer per order., witch elif-glycerin (TUCKS) pad Topical, PRN, Hemorrhoids, For perineal pain or discomfort, Starting on Wed04/18/24 at 1853, Apply to perineal area. Patient is capable and may self administer at bedside. 1351 (Given - Provider: Yisel Ly RN) Linked Groups Order Group 1: ondansetron (ZOFRAN-ODT) disintegrating tablet 4 mgJump to med 4 mg, Oral, EVERY 6 HOURS PRN, Starting on Wed04/19/24 at 1340, Until Discontinued, Nausea, Vomiting, Or ondansetron (ZOFRAN) injection 4 mgJump to med 4 mg, IntraVENous, EVERY 6 HOURS PRN, Starting on Wed04/19/24 at 1340, Until Discontinued, Nausea, Vomiting, Administer if oral route cannot be used., FOR RECORDS PERTAINING TO PATIENTS WHO ARE OR HAVE BEEN ENROLLED IN A CHEMICAL DEPENDENCY/SUBSTANCEABUSE PROGRAM, SOME INFORMATION MAY BE OMITTED. This clinical summary was aggregated from multiple sources. Caution should be exercised in using it in the provision of clinical care. This summary normalizes information from multiple sources, and as a consequence, information in this document may materially change the coding, format and clinical context of patient data. In addition, data may be omitted in some cases. CLINICAL DECISIONS SHOULD BE BASED ON THE PRIMARY CLINICAL RECORDS. [facility] [employer] [facility]. provides no warranty or guarantee of the accuracy or completeness of information in this document.
--- NOTE | 2024-06-19 12:35 | PC.NURSE ---
Charlene arrives for support. States has had mastitis since 06/13/2024 with breast redness, fever, chills, aches, and generally not feeling well. Called [employer] on and picked up script on Wednesday Today is concerned that breast has hard lump and yellow green colored pus from nipple when massages and deep compresses breast. Left breast noted to have redness in irregular pattern upper area of areola, 3-4 cm X 6cm Area tender, palpates as density in breast tissue. Charlene demo's breast compression. Drops of milk noted as well as thick, yellow substance, more sticky than milk. Pt is 8 weeks post and is noted to have a small crack at the base of her left nipple. States it developed about 3 days prior to start of symptoms. Discussed contacting her care provider, Katelynn Alexanedr CNM for further care such as US of breast and possible culture of yellow drainage. Given handout of breast care with mastitis and plugged ducts. Pt upset and wish this didn't happen Encouraged to call PCP and take action today. Pt no longer febrile. Support offered if needed further care, Leaves ambulatory.
== END 2024-06-19 12:50 | disposition home or self-care (01) ==
LOC: FBCO 11:29
PROVIDERS: PCP Family Medicine; Visit Provider Obstetrics & Gynecology
DX: Z39.1 Encounter for care and examination of lactating mother (principal)